=== PATIENT | male | born 1970 | race Caucasian/White ===

== ENCOUNTER → 2019-12-23 09:47 | Outpatient (BNVA) | payer OTHER, SELFPAY | PROVIDERS: Family Provider Nurse Practitioner; PCP Nurse Practitioner; Referring Provider Family Medicine; Visit Provider Orthopaedic Surgery | DX: M17.11 Unilateral primary osteoarthritis, right knee (principal); M25.561 Pain in right knee | CPT/HCPCS: 73560; 73565 ==

== ENCOUNTER 2019-12-29 14:55 | Outpatient (CLI) | payer OTHER, SELFPAY ==
--- NOTE | 2019-12-29 15:02 | MR_ITS ---
WS: [id number] MRI RIGHT KNEE NONCONTRAST TECHNIQUE: Axial PD, coronal PD fat sat, coronal PD, sagittal PD, and sagittal PD fat-sat images obta ined. CLINICAL INFORMATION: M17.11 Unilateral primary osteoarthritis, right knee COMPARISON: MRI 7 FINDINGS: Distal quadriceps and patella tendons are intact. Hypertrophic patella. Normal ACL and PCL. Normal taryn ne marrow signal in the distal femoral condyles and tibial plateau. Mild chondromalacia patella invol ving the lateral patella facet. No subchondral edema. Normal lateral collateral ligament. Normal medi al collateral ligament. Small popliteal cyst. Popliteal cyst measures approximately 14 x 9 mm. Intrasubstance signal abnormal ity involving the posterior horn medial meniscus unchanged since 2013. Normal lateral meniscus. Mild chondromalacia involving the medial and lateral joint compartments worse involving the medial joint c ompartment. MR/MR knee RT wo con* [id number] IMPRESSION: 1. Normal ACL and PCL. 2. Mild chondromalacia patella worse in the lateral patella facet. No subchond ral edema. This is progressed since 2013 3. Intrasubstance signal abnormality involving the posterior horn medial menis cus is unchanged from previous.. 4. Small popliteal cyst measuring 14 x 9 mm.
== END 2019-12-29 14:56 | disposition home or self-care (01) ==
LOC: RADWPI 14:59
PROVIDERS: Family Provider Nurse Practitioner; PCP Nurse Practitioner; Visit Provider Orthopaedic Surgery
DX: M17.11 Unilateral primary osteoarthritis, right knee (principal); M22.41 Chondromalacia patellae, right knee; M71.21 Synovial cyst of popliteal space [Baker], right knee
CPT/HCPCS: 73721

== ENCOUNTER → 2020-03-23 08:59 | Outpatient (BNVA) | payer OTHER, SELFPAY | PROVIDERS: Family Provider Nurse Practitioner; PCP Nurse Practitioner; Visit Provider Nurse Practitioner | DX: Z20.828 Contact with and (suspected) exposure to other viral communicable diseases (principal); R05 Cough; R50.9 Fever, unspecified; R69 Illness, unspecified; J98.01 Acute bronchospasm | CPT/HCPCS: 80053; 81000; 85025; 87400; 87635 ==

== ENCOUNTER 2020-03-26 12:25 | Emergency (ER) | payer OTHER, SELFPAY ==
[2020-03-26] VITALS (7 sets, daily range): BP systolic 89–199; BP diastolic 56–89; PULSE 60–106; RESP 17–25; TEMP 38.8; O2SAT 76–100; BMI 35.6
--- NOTE | 2020-03-26 13:03 | XRR_ITS ---
PROCEDURE INFORMATION: Exam: XR Chest, 1 View Exam date and time: 03/26/2020 1:05 PM Age: 50 years old Clinical indication: Shortness of breath; Additional info: Covid, hypoxia TECHNIQUE: Imaging protocol: XR of the chest Views: 1 view. COMPARISON: CR Chest 2 views* [id number] 05/11/2017 2:55 PM FINDINGS: Lungs: Interstitial congestion right perihilar region. Pleural space: Unremarkable. No pleural effusion. No pneumothorax. Heart/Mediastinum: Unremarkable. No cardiomegaly. Bones/joints: Unremarkable. XR/XR chest 1V portable [id number] IMPRESSION: 1. Mild interstitial congestion right perihilar region 2. Otherwise No acute findings.
[2020-03-26 13:17] LABS: Basophils % 0.2 %; Hematocrit 44.1 % (42.0-52.0); Hemoglobin 14.8 g/dL (11.7-16.6); Lymphocytes # 0.8 10^3/uL (0.8-4.8); Lymphocytes % 16.8 %; Mean Corpuscular HGB Conc 33.6 g/dL (30.0-36.0); Mean Corpuscular Hemoglobin 28.8 pg (28.0-34.0); Mean Platelet Volume 10.3 fL (7.4-10.4); Monocytes # 0.3 10^3/uL (0.2-0.9); Monocytes % 5.3 %; Neutrophils # 3.64 10^3/uL (1.8-7.7); Neutrophils % 76.6 %; Nucleated Red Blood Cells % 0 %; Platelet Count 215 10^3/cmm (130-400); Red Blood Count 5.13 10^6/uL (4.1-5.3); Red Cell Distribution Width 13.6 % (12.1-15.1); White Blood Count 4.8 10^3/uL (4.0-10.0)
[2020-03-26 13:22] LABS: ABG PH Result 7.43 (7.35-7.45); Arterial Blood Gas Hematocrit 45.4 % (42-52); Base Excess ABG 2.4 mmol/L (-2.0-2.0); Blood Gas Allen Test Pos; Blood Gas Sample Type Arterial; PO2 ABG 55.2 mmHg (80.0-100.0)
[2020-03-26 13:24] LABS: D Dimer 0.73 ug/mIFEU (0-0.59)
[2020-03-26 13:24] LABS: Blood Gas Sample Site Radial, left; Oxygen Device NRB
--- NOTE | 2020-03-26 13:30 | PC.NURSE ---
PTS O2 SATS NOTED AT 74-76%. O2 APPLIED AT 6L/NC, SATS INCREASED 90%.
--- NOTE | 2020-03-26 13:33 | W.ED.COVID ---
HPI - COVID General: Chief Complaint: COVID symptoms Stated Complaint: COVID+, LOW 02 STATS, FEVER Time Seen by Provider: 03/26/20 12:41 Source: patient Mode of arrival: ambulatory Limitations: no limitations Triage information: Has fever, cough or shortness of breath. Exposure to COVID + person last 14 days History of Present Illness: HPI Narrative: Patient has been feeling unwell for about a week now. He symptoms include cough, body aches, fevers, diarrhea, weakness. He does not think he has any trouble breathing. He however has been getting worse and with the severe diarrhea he decided to come to the emergency department for evaluation. MD complaint: known COVID positive Prior covid testing: yes, results known COVID 19 common symptoms: positive fever(s), chills, cough, non-productive cough, fatigue, body aches, headache(s), loss of sense of smell and/or taste, nasal congestion, nausea and diarrhea; negative productive cough, dyspnea, throat pain or vomiting COVID 19 other sytmptoms: positive requiring oxygen and lethargy; negative chest pressure, chest pain, pleuritic pain, respiratory distress, cyanosis, confusion, new neurological complaints or other concerning symptoms Onset (ago): week(s) (1) Severity: severe Pertinent comorbid conditions: diabetes and hypertension COVID Results: SARS-CoV-2 RNA (RT-PCR) Detected (NOT DETECTED) A 03/23/20 08:59 03/23/20 Review of Systems General: Reports: 10 or more systems reviewed and unremarkable except in HPI and below Const: Reports: fever(s), chills, body aches and fatigue Eyes: Denies: change in vision or blurry vision ENMT: Reports: nasal congestion; Denies: throat pain Card: Denies: chest pain Resp: Reports: non-productive cough; Denies: dyspnea or productive cough GI: Reports: nausea and diarrhea; Denies: vomiting : Denies: flank pain, dysuria, urinary frequency, urinary urgency or urinary hesitancy Musc: Denies: neck pain, back pain or extremity swelling Skin/Breast: Denies: rash, pruritus or erythema Neuro: Reports: headache(s); Denies: confusion Endo: Denies: polyuria, polydipsia or tired all the time [facility] ED PFSH: Medical History (Updated 03/26/20 @ 21:28 by Corina Lujan MD, [facility] [place] Essential (primary) hypertension Hyperlipidemia Spondylolysis, lumbosacral region Vitamin D deficiency Surgical History History of carpal tunnel release (~2013) RIGHT History of cholecystectomy (~2009) S/P left knee arthroscopy Family History Other Anesthesia complication Cancer Dementia Diabetes Hyperlipidemia Hypertension Social History Smoking and tobacco status: never smoked Lives independently: Yes Household members: none Housing: House Marital status: Single Highest education level completed: High School Graduate service: Yes Current occupational status: unemployed Current occupation: Health Safety Instructor Current occupational exposures/hazards: No History of recent travel: No Current gender identity: Male Physical Exam Const: COMMON NORMALS: no acute distress, average body habitus, patient oriented x3, no limitations, healthy appearing, alert and well nourished HENMT: COMMON NORMALS: normocephalic, atraumatic and moist oral mucous membranes HEAD & SCALP: normocephalic and atraumatic Neck/C-Spine: COMMON NORMALS: no meningeal signs and no JVD Resp: COMMON NORMALS: normal respiratory effort, No retractions, No use of accessory muscles, clear to auscultation bilaterally and percussion normal AUSCULTATION: clear to auscultation bilaterally PERCUSSION: percussion normal Cardio: COMMON NORMALS: no JVD, regular rate, regular rhythm, S1 normal heart sound present, S2 normal heart sound present, No gallops present (Cardio), No clicks present (Cardio), No murmurs present (Cardio), No rub (Cardio) and Peripheral pulses 2+ throughout RATE: regular rate RHYTHM: regular rhythm HEART SOUNDS: S1 normal heart sound present and S2 normal heart sound present PERIPHERAL PULSES: Peripheral pulses 2+ throughout GI: COMMON NORMALS: Normal to inspection, nondistended, normoactive bowel sounds present, Soft to palpation, non-tender, No hepatosplenomegaly present, no masses and no bruits PALPATION: Yes Soft to palpation and Yes No hepatosplenomegaly present Extremity: COMMON NORMALS: normal to inspection, full ROM, capillary refill normal, no calf tenderness and no pedal edema Neuro: COMMON NORMALS: patient oriented x3 SENSORIUM/ORIENTATION: Yes alert MENINGEAL SIGNS: Yes no meningeal signs Skin: COMMON NORMALS: no rashes or lesions noted, no wounds, turgor normal, no jaundice, no petechiae and no mottling GENERAL SKIN EXAM: no rashes or lesions noted and turgor normal Course ED course: 50-year-old male recently diagnosed with COVID-19 infection. In the emergency department he was found to be severely hypoxic and needed to be placed on heated high flow oxygen at 30 L/min with an FiO2 of 70%. Because of his oxygen needs he needs to be hospitalized, however we have no beds in this facility so he is transferred to [facility] for further evaluation and management. In the emergency department he received a dose of intravenous remdesivir as well as intravenous dexamethasone. Consultations: Consultation #1: Discussed the patient with Dr. Carmona, hospitalist at [facility] in [place]. He kindly accepted the patient to his service Time: 16:43 Vital Signs: Vital signs: Vital Signs Temperature 102 F H 03/26/20 12:42 Pulse Rate 101 H 03/26/20 18:49 Respiratory Rate 25 H 03/26/20 18:49 Blood Pressure 89/56 03/26/20 18:49 Pulse Oximetry 100 03/26/20 18:49 MDM - COVID MDM Narrative: Medical decision making narrative: 50-year-old male with acute respiratory failure secondary to COVID-19 pneumonia. I required to be placed on heated high flow oxygen at 30 L/min and FiO2 of 70% to maintain his oxygen saturations. He however remained stable otherwise in the emergency department. He was given a dose of intravenous dexamethasone and a first dose of remdesivir. Because we did not have any beds in this facility he was transferred to [facility] in [place]. He does not meet the criteria for Bamlanivimab infusion. Medical Records: Attestation: I reviewed the patient's medical records. Lab Data: Attestation: I reviewed the patient's lab results. Labs: Lab Results 03/26/20 03/26/20 03/26/20 Range/Units 12:55 12:55 12:55 WBC 4.8 (4.0-10.0) 10^3/ uL RBC 5.13 (4.1-5.3) 10^6/u L Hgb 14.8 (11.7-16.6) g/dL Hct 44.1 (42.0-52.0) % MCV 86.0 (80-94) fL MCH 28.8 (28.0-34.0) pg MCHC 33.6 (30.0-36.0) g/dL RDW 13.6 (12.1-15.1) % Plt Count 215 (130-400) 10^3/c mm MPV 10.3 (7.4-10.4) fL Neut % (Auto) 76.6 % Lymph % (Auto) 16.8 % [place] % (Auto) 5.3 % Eos % (Auto) 0.0 % Baso % (Auto) 0.2 % Neut # (Auto) 3.64 (1.8-7.7) 10^3/u L Lymph # (Auto) 0.8 (0.8-4.8) 10^3/u L [place] # (Auto) 0.3 (0.2-0.9) 10^3/u L Eos # (Auto) 0.0 (0.0-0.8) 10^3/u L Baso # (Auto) 0.0 (0.0-0.1) 10^3/u L Nucleated RBC % (a uto) 0 % Nucleated RBCs # 0.0 /100WBC D-Dimer 0.73 H (0-0.59) ug/mIFE U Specimen Type Sample Site ABG pH (7.35-7.45) ABG pCO2 (35-45) mmHg ABG pO2 (80.0-100.0) mmH g ABG HCO3 (22-26) mmol/L ABG Base Excess (-2.0-2.0) mmol/ L Sebas Test Hematocrit (42-52) % O2 Delivery Device FiO2 % Box Toe Stitcher ID Sodium 129 L (136-145) mmol/L Potassium 3.4 L (3.5-5.1) mmol/L Chloride 89 L (98-107) mmol/L Carbon Dioxide 24 (22-29) mmol/L Anion Gap 19.4 H (5-19) BUN 12 (6-20) mg/dL Creatinine 1.2 (0.7-1.2) mg/dL GFR Calculation 64.4 L (90-130) mL/min Glucose 351 H (65-115) mg/dL Calculated Osmolal ity 282 L (285-295) mOsm/k g Lactic Acid (0.5-2.2) mmol/L Calcium 8.7 (8.5-10.5) mg/dL Ferritin 2311 H (30-400) ng/mL Total Bilirubin 0.4 (0.15-1.2) mg/dL AST 44 H (0-40) U/L ALT 40 (0-41) U/L Alkaline Phosphata se 97 (40-130) IU/L Lactate Dehydrogen ase 473 H (135-225) U/L C-Reactive Protein 89.2 H (0.0-4.9) mg/L Total Protein 7.2 (6.6-8.7) g/dL Albumin 4.0 (3.5-5.2) g/dL Globulin 3.2 (1.3-4.6) g/dL Procalcitonin 0.37 (0-0.5) ng/mL Influenza Type A A g (Negative) Influenza Type B A g (Negative) 03/26/20 03/26/20 03/26/20 Range/Units 12:55 13:15 13:50 WBC (4.0-10.0) 10^3/ uL RBC (4.1-5.3) 10^6/u L Hgb (11.7-16.6) g/dL Hct (42.0-52.0) % MCV (80-94) fL MCH (28.0-34.0) pg MCHC (30.0-36.0) g/dL RDW (12.1-15.1) % Plt Count (130-400) 10^3/c mm MPV (7.4-10.4) fL Neut % (Auto) % Lymph % (Auto) % [place] % (Auto) % Eos % (Auto) % Baso % (Auto) % Neut # (Auto) (1.8-7.7) 10^3/u L Lymph # (Auto) (0.8-4.8) 10^3/u L [place] # (Auto) (0.2-0.9) 10^3/u L Eos # (Auto) (0.0-0.8) 10^3/u L Baso # (Auto) (0.0-0.1) 10^3/u L Nucleated RBC % (a uto) % Nucleated RBCs # /100WBC D-Dimer (0-0.59) ug/mIFE U Specimen Type Arterial Sample Site Radial, left ABG pH 7.43 (7.35-7.45) ABG pCO2 41.0 (35-45) mmHg ABG pO2 55.2 L (80.0-100.0) mmH g ABG HCO3 27.0 H (22-26) mmol/L ABG Base Excess 2.4 H (-2.0-2.0) mmol/ L Sebas Test Pos Hematocrit 45.4 (42-52) % O2 Delivery Device Nrb FiO2 100.0 % Box Toe Stitcher ID Drn Sodium (136-145) mmol/L Potassium (3.5-5.1) mmol/L Chloride (98-107) mmol/L Carbon Dioxide (22-29) mmol/L Anion Gap (5-19) BUN (6-20) mg/dL Creatinine (0.7-1.2) mg/dL GFR Calculation (90-130) mL/min Glucose (65-115) mg/dL Calculated Osmolal ity (285-295) mOsm/k g Lactic Acid 2.0 (0.5-2.2) mmol/L Calcium (8.5-10.5) mg/dL Ferritin (30-400) ng/mL Total Bilirubin (0.15-1.2) mg/dL AST (0-40) U/L ALT (0-41) U/L Alkaline Phosphata se (40-130) IU/L Lactate Dehydrogen ase (135-225) U/L C-Reactive Protein (0.0-4.9) mg/L Total Protein (6.6-8.7) g/dL Albumin (3.5-5.2) g/dL Globulin (1.3-4.6) g/dL Procalcitonin (0-0.5) ng/mL Influenza Type A A g Negative (Negative) Influenza Type B A g Negative (Negative) Imaging Data: CXR: Attestation: I personally reviewed and interpreted this imaging study as follows: Radiologist's impression: [address] [place] [address] XRay Report Signed Patient: Ugo Pierre #: [id number] : 1970Acct#:[id number] Age/Sex: 50 / MADM Date: 03/26/20 Loc: ERRoom/Bed: Attending Dr: Ordering Provider/Ordering MD: Corina Lujan MD, [facility] [place] Date of Service: 03/26/20 Procedure(s): XR chest 1V portable [id number] Accession Number(s): [id number] Report Number: [id number] PROCEDURE INFORMATION: Exam: XR Chest, 1 View Exam date and time: 03/26/2020 1:05 PM Age: 50 years old Clinical indication: Shortness of breath; Additional info: Covid, hypoxia TECHNIQUE: Imaging protocol: XR of the chest Views: 1 view. COMPARISON: CR Chest 2 views* [id number] 05/11/2017 2:55 PM FINDINGS: Lungs: Interstitial congestion right perihilar region. Pleural space: Unremarkable. No pleural effusion. No pneumothorax. Heart/Mediastinum: Unremarkable. No cardiomegaly. Bones/joints: Unremarkable. XR/XR chest 1V portable [id number] IMPRESSION: 1. Mild interstitial congestion right perihilar region 2. Otherwise No acute findings. Dictated By:Jah Archibald Signed By:Leander Archibald Date/Time:03/26/201414 DD/ 1413 COVID Results: SARS-CoV-2 RNA (RT-PCR) Detected (NOT DETECTED) A 03/23/20 08:59 03/23/20 Discharge Plan Discharge Patient Disposition: Xfer Short-Term Hosp Clinical Impression: Acute hypoxemic respiratory failure, Pneumonia due to 2019 novel coronavirus, Gastroenteritis due to 2019 novel coronavirus Discharge Orders: Transfer Out of Facility (Order); Ordered 03/26/20 Ordered By: Corina Lujan Referrals: Enrrique Bonds, DRILLING PLANT OPERATOR-C [Primary Care Provider] - Coding Level of Care Code ED Rustic Terrazzo Setter for Chg Fwd Exam Comprehensive
[2020-03-26 13:38] LABS: Procalcitonin 0.37 ng/mL (0-0.5)
[2020-03-26 13:50] LABS: Alanine Aminotransferase 40 U/L (0-41); Alkaline Phosphatase 97 IU/L (40-130); Anion Gap 19.4 (5-19); Aspartate Amino Transferase 44 U/L (0-40); Blood Urea Nitrogen 12 mg/dL (6-20); C Reactive Protein 89.2 mg/L (0.0-4.9); Calcium 8.7 mg/dL (8.5-10.5); Carbon Dioxide 24 mmol/L (22-29); Chloride 89 mmol/L (98-107); Globulin 3.2 g/dL (1.3-4.6); Glomerular Filtration Rate 64.4 mL/min (90-130); Glucose 351 mg/dL (65-115); Osmolality Calculated 282 mOsm/kg (285-295); Potassium 3.4 mmol/L (3.5-5.1); Sodium 129 mmol/L (136-145); Total Bilirubin 0.4 mg/dL (0.15-1.2); Total Protein 7.2 g/dL (6.6-8.7)
[2020-03-26 14:13] LABS: Ferritin 2311 ng/mL (30-400)
[2020-03-26 14:14] LABS: Lactate Dehydrogenase 473 U/L (135-225)
[2020-03-26] MEDS: ondansetron 2 mg/ML SDV 2 mL 4 MG IVP (14:17)
[2020-03-26] MEDS: morphine 4 mg/mL SDV 1 mL IVP (14:18)
[2020-03-26 15:01] LABS: Influenza A by IFA Negative (Negative); Influenza B by IFA Negative (Negative)
[2020-03-26] MEDS: dexamethasone 4 mg/mL INJ 6 MG IVP (17:39)
== END 2020-03-26 18:53 | disposition short-term general hospital (02) ==
PROVIDERS: Emergency Provider Family Medicine; PCP Nurse Practitioner
DX: U07.1 COVID-19 (principal); J12.89 Other viral pneumonia; J96.01 Acute respiratory failure with hypoxia; A08.39 Other viral enteritis; I10 Essential (primary) hypertension; E78.5 Hyperlipidemia, unspecified
CPT/HCPCS: 12345; 36600; 71045; 80053; 82728; 82803; 83605; 83615; 84145; 85025; 85378; 86140; 87804; 96365; 96375; 99282; 99285; J1100; J2270; J2405

== ENCOUNTER 2020-09-13 06:00 | Outpatient (RCR) | payer OTHER, SELFPAY | END 2020-09-26 23:59 | disposition home or self-care (01) | LOC: TPO 06:00 | PROVIDERS: PCP Nurse Practitioner; Referring Provider Family Medicine; Visit Provider Family Medicine | DX: I60.11 Nontraumatic subarachnoid hemorrhage from right middle cerebral artery (principal) | CPT/HCPCS: 97110; 97162; 97166 ==

== ENCOUNTER 2020-09-27 06:00 | Outpatient (RCR) | payer OTHER, SELFPAY | END 2020-10-26 23:59 | disposition home or self-care (01) | LOC: TPO 06:00 | PROVIDERS: PCP Nurse Practitioner; Referring Provider Family Medicine; Visit Provider Family Medicine | DX: I60.11 Nontraumatic subarachnoid hemorrhage from right middle cerebral artery (principal) | CPT/HCPCS: 97110; 97140; 97164; 97530 ==

== ENCOUNTER 2020-10-12 13:00 | Emergency (ER) | payer OTHER, SELFPAY ==
[2020-10-12 13:07] VITALS: BP 167/94; PULSE 84; RESP 16; TEMP 36.6; O2SAT 93; BMI 31.6
--- NOTE | 2020-10-12 15:11 | ED_ITS ---
HPI - URI/Sore Throat General: Chief Complaint: Shortness of Breath/Dyspnea Stated Complaint: SOB Time Seen by Provider: 10/12/20 15:01 History of Present Illness: HPI Narrative: Patient is a 50-year-old male who comes to the ED with upper respiratory symptoms. Patient has had a cough with nasal drainage and congestion for the past week. He says his cough is productive with thick green-colored sputum. Patient has a history of of severe COVID-19 on 2019 and required hospitalization. [facility]-ray and to be swabbed for Covid again. Patient also feels a little short of breath, but that is normal for him now since he was discharged after hospitalization from COVID-19 in Feb 2020. Denies any fever, chills, nausea/vomiting, bladder or bowel symptoms. Associated symptoms: Deny abdominal pain, chills, chest pain, diarrhea, fever(s), headache(s), nasal congestion, nausea or vomiting Review of Systems Const: Denies: fever(s), chills or fatigue Eyes: Denies: change in vision or eye discomfort ENMT: Denies: throat pain, odynophagia, nasal discharge or nasal congestion Card: Denies: chest pain, palpitations, edema, swelling of feet/ankles, dyspnea on exertion or orthopnea Resp: Reports: dyspnea (chronic), productive cough and change in phlegm color (greenish color); Denies: non-productive cough GI: Denies: abdominal pain, nausea, vomiting, diarrhea, constipation or hematochezia : Denies: flank pain, difficulty urinating, dysuria or hematuria Musc: Denies: neck pain, back pain or extremity swelling Skin/Breast: Denies: rash or new lesions Neuro: Denies: headache(s), numbness in extremities or weakness in extremities PFS ED PFSH: Medical History Essential (primary) hypertension Hyperlipidemia Spondylolysis, lumbosacral region Type 2 diabetes mellitus with hyperglycemia Vitamin D deficiency Surgical History History of carpal tunnel release (~2013) RIGHT History of cholecystectomy (~2009) S/P left knee arthroscopy Family History Mother Dementia Hypertension Hyperlipidemia Sister Hypertension Other Anesthesia complication Cancer Diabetes Social History Smoking and tobacco status: never smoked Lives independently: Yes Household members: none Housing: House Marital status: Single Highest education level completed: High School Graduate service: Yes Current occupational status: unemployed Current occupation: Store Protection Specialist Current occupational exposures/hazards: No History of recent travel: No Current gender identity: Male Physical Exam Const: COMMON NORMALS: no acute distress, patient oriented x3 and alert GENERAL APPEARANCE: cooperative and comfortable HENMT: COMMON NORMALS: normocephalic HEAD & SCALP: normocephalic MOUTH: Normal oral and palatal mucosa present THROAT: posterior oropharynx normal and uvula midline Neck/C-Spine: COMMON NORMALS: supple GENERAL: Yes normal visual inspection Resp: COMMON NORMALS: normal respiratory effort, No retractions, No use of accessory muscles and clear to auscultation bilaterally EFFORT & INSPECTION: Yes able to speak in complete sentences, No tachypneic, No respiratory distress and No labored AUSCULTATION: clear to auscultation bilaterally Cardio: COMMON NORMALS: regular rate, regular rhythm, S1 normal heart sound present, S2 normal heart sound present, No gallops present (Cardio), No clicks present (Cardio), No murmurs present (Cardio) and Peripheral pulses 2+ throug hout RATE: regular rate RHYTHM: regular rhythm HEART SOUNDS: S1 normal heart sound present and S2 normal heart sound present PERIPHERAL PULSES: Peripheral pulses 2+ throughout GI: COMMON NORMALS: Normal to inspection, nondistended, normoactive bowel sounds present, Soft to palpation, non-tender and no masses PALPATION: Yes Soft to palpation : COMMON NORMALS: Yes no CVA tenderness BLADDER/KIDNEY EXAM: Yes no CVA tenderness Back/Pelvis: COMMON NORMALS: no CVA tenderness Extremity: COMMON NORMALS: normal to inspection Neuro: COMMON NORMALS: patient oriented x3 and moves all extremities SENSORIUM/ORIENTATION: Yes alert Skin: GENERAL SKIN EXAM: dry skin Course Vital Signs: Vital signs: Vital Signs Temperature 97.9 F 10/12/20 13:07 Pulse Rate 77 10/12/20 16:32 Respiratory Rate 20 H 10/12/20 16:32 Blood Pressure 151/74 10/12/20 16:32 Pulse Oximetry 94 10/12/20 16:32 MDM - URI/Sore Throat MDM Narrative: Medical decision making narrative: Patient is a 50-year-old male comes to the ED with upper respiratory symptoms for the past week. He reports coughing up green sputum. Chronic exam patient appears nontoxic and in no acute distress or pain. His lungs were clear to auscultation bilaterally no signs of labored breathing noted. Vital stable. Covid test pending. Chest x- ray showed right lung middle lobe pneumonia developing. Patient diagnosed with pneumonia. Patient was given dose of Solu-Medrol here in the ED and discharged home with azithromycin prescription. Return to ED precautions given. Follow-up with PCP 5 to 7 days for reevaluation. Patient understood agree with plan. Lab Data: Labs: Lab Results 10/12/20 Range/Units 15:50 Nasal/Oral COVID-1 9 PCR Not detected Imaging Data^: CXR: Attestation: I personally reviewed and interpreted this imaging study as follows: Radiologist's impression: [id number] [address] XRay Report Signed Patient: Ugo Pierre Unit #: [id number] : 1970 Age/Sex: 50 / M ADM Date: 10/12/20 Loc: ER Room/Bed: Attending Dr: Ordering Provider/Ordering MD: Ron Balderas Date of Service: 10/12/20 Procedure(s): XR chest 2V* [id number] Accession Number(s): [id number] Report Number: [id number] WS: [id number] Exam: XR chest 2V* [id number] Date/Time of Exam: 10/12/2020 3:36 PM Reason For Exam: productive cough and SOB Comparison 06/29/2014. Mild diffuse infiltrate in the medial right lung zone. The left lung is clear. Heart size is normal for technique. No pleural effusions or pneumothorax. There appear to be several emphysematous blebs in the right upper lobe. Regional bony elements are intact. The superior mediastinum is not widened. XR/XR chest 2V* [id number] IMPRESSION: 1. Mild diffuse infiltrate in the medial right lung zone suspicious for pneumonia. There are also several emphysematous blebs noted in the medial right lung within the upper lobe. Dictated By: Marky Reyes DO Signed By: Marky Reyes DO Signed Date/Time: 10/12/20 1554 DD/ 1546 Discharge Plan Discharge Patient Disposition: Home Clinical Impression: Pneumonia Qualifiers: Pneumonia type: due to unspecified organism Laterality: right Lung location: middle lobe of lung Qualified Code(s): J18.9 - Pneumonia, unspecified organism Condition: Stable Prescriptions: New azithromycin 250 mg tablet See Rx Instructions .ROUTE .COMPLEX Qty: 6 RF: 0 No Action amlodipine 10 mg tablet 10 mg PO DAILY RF: 0 atorvastatin 20 mg tablet 20 mg PO DAILY RF: 0 chlorthalidone 25 mg tablet 25 mg PO DAILY RF: 0 Excedrin Tension Headache 500-65 mg tablet 3 tab PO DAILY PRN (Reason: Migraine Headache) RF: 0 omega-3 fatty acids [Fish Oil Concentrate] 1,000 mg capsule 1,000 mg PO DAILY RF: 0 Jardiance 25 mg tablet 25 mg PO QAM RF: 0 valsartan 80 mg tablet 80 mg PO DAILY RF: 0 vitamin B complex [B Complex-Vitamin B12] Tablet 1 tab PO DAILY RF: 0 cholecalciferol (vitamin D3) 25 mcg (1,000 unit) capsule 25 mcg PO DAILY RF: 0 vitamin E 1,000 unit Capsule 1,000 unit PO DAILY RF: 0 metoprolol succinate 200 mg Tablet Extended Release 24 Hr 200 mg PO BID RF: 0 famotidine 20 mg Tablet 20 mg PO DAILY RF: 0 Vitamin C 500 mg Tablet 500 mg PO DAILY RF: 0 glipizide 5 mg Tablet 2.5 mg PO BID RF: 0 Discharge Orders: Discharge ED (Routine); Ordered 10/12/20 Ordered By: Ron Balderas Referrals: Enrrique Bonds, IT SUPPORT TECHNICIAN-C [Primary Care Provider] - Discharge Diet: Regular Discharge Activity: Increase activity as tolerated Patient Instructions: Pneumonia (ED) Activity Restrictions/Additional Instructions: Follow-up with medical provider as directed in 5 days for reevaluation. Take full course of antibiotic as prescribed. Return to the ER or your medical provider if condition worsens. Please read and understand discharge instructions. Thank you for choosing [facility] for your healthcare needs today. Please realize this is an emergency room and that we are providing you with a medical screening exam and this may not be complete and all inclusive of all the testing and or work up that you may need to determine your ailment or severity of your illness. It is very important that you follow up as instructed or that you return to the Emergency Department should you have concerns or if your condition changes or worsens in any way. Coding Level of Care Code ED Machine Bobbin Winder for Elizabeth Fwd Exam Comprehensive
--- NOTE | 2020-10-12 15:17 | XR_ITS ---
WS: [id number] Exam: XR chest 2V* [id number] Date/Time of Exam: 10/12/2020 3:36 PM Reason For Exam: productive cough and SOB Comparison 06/29/2014. Mild diffuse infiltrate in the medial right lung zone. The left lung is clear. Heart size is normal f or technique. No pleural effusions or pneumothorax. There appear to be several emphysematous blebs in the right upper lobe. Regional bony elements are intact. The superior mediastinum is not widened. XR/XR chest 2V* [id number] IMPRESSION: 1. Mild diffuse infiltrate in the medial right lung zone suspicious for pneumon ia. There are also several emphysematous blebs noted in the medial right lung w ithin the upper lobe.
--- NOTE | 2020-10-12 15:39 | ECG_ITS ---
[facility] Test Date: 2020-10-12 Pat Name: Ugo Pierre Department: Room: Gender: Male Satellite Communications Operator: : 1970 Requested By: Ron Balderas Order Number: [id number] Glover MD: Deysi Negro M.D. Measurements Intervals [place] Rate: 85 P: 14 [place]: 174 QRS: -15 QRSD: 96 T: 53 QT: 384 QTc: 458 Interpretive Statements SINUS RHYTHM POSSIBLE LEFT ATRIAL ENLARGEMENT [-0.1mV P WAVE IN V1/V2] NONSPECIFIC T-WAVE ABNORMALITY WARNING: DATA QUALITY MAY AFFECT INTERPRETATION No previous ECG available for comparison Electronically Signed On 10-12-2020 17:46:50 CDT by Deysi Negro M.D. [id number]
[2020-10-12 16:12] VITALS: BP 151/74; PULSE 77; RESP 20; O2SAT 94
[2020-10-12 16:32] VITALS: BP 151/74; PULSE 77; RESP 20; O2SAT 94
[2020-10-13 15:49] LABS: Coronavirus Test Green County Not Detected
--- NOTE | 2020-10-13 16:29 | PC.NURSE ---
pt contacted and given the results of his covid test
== END 2020-10-12 16:33 | disposition home or self-care (01) ==
PROVIDERS: Emergency Provider Physician Assistant; PCP Nurse Practitioner
DX: J18.9 Pneumonia, unspecified organism (principal); I10 Essential (primary) hypertension; E78.5 Hyperlipidemia, unspecified; E11.9 Type 2 diabetes mellitus without complications; Z20.822 Contact with and (suspected) exposure to COVID-19
CPT/HCPCS: 71046; 87635; 93005; 96372; 99283; J2930

== ENCOUNTER → 2020-10-25 10:58 | Outpatient (BNVA) | payer OTHER, SELFPAY | PROVIDERS: PCP Family Medicine; Visit Provider Internal Medicine Pulmonary Disease | DX: J30.89 Other allergic rhinitis (principal); T78.40XA Allergy, unspecified, initial encounter | CPT/HCPCS: 82785; 85025; 86003 ==

== ENCOUNTER 2020-10-27 06:00 | Outpatient (RCR) | payer OTHER, SELFPAY | END 2020-11-26 23:59 | disposition home or self-care (01) | LOC: TPO 06:00 | PROVIDERS: PCP Family Medicine; Referring Provider Family Medicine; Visit Provider Family Medicine | DX: I60.11 Nontraumatic subarachnoid hemorrhage from right middle cerebral artery (principal) | CPT/HCPCS: 97110; 97112; 97164; 97530 ==

== ENCOUNTER → 2020-11-10 10:22 | Outpatient (BNVA) | payer OTHER, SELFPAY | PROVIDERS: PCP Family Medicine; Visit Provider Internal Medicine Pulmonary Disease | DX: B94.8 Sequelae of other specified infectious and parasitic diseases (principal); J12.89 Other viral pneumonia; R53.81 Other malaise; U07.1 COVID-19; Z20.822 Contact with and (suspected) exposure to COVID-19 | CPT/HCPCS: 87635 ==

== ENCOUNTER 2020-11-14 07:50 | Outpatient (CLI) | payer OTHER, SELFPAY ==
--- NOTE | 2020-11-14 10:00 | CT_ITS ---
WS: [id number] CT CHEST WITHOUT INTRAVENOUS CONTRAST HISTORY: dyspnea TECHNIQUE: Contiguous 5 mm axial imaging performed on the thorax. Coronal and sagittal reformats are submitted. All CT scans at [facility] use at least one of these dose optimization techniq ues: automated exposure control; mA and/or kV adjustment per patient size (includes targeted exams wh ere dose is matched to clinical indication); or iterative reconstruction. CONTRAST: None DLP: 1013.3 mGy.cm COMPARISON: Radiographs 10/12/2020 Lungs and central airway: Multilobar findings a mild groundglass attenuation with fibrosis and scarri ng. Areas of linear subsegmental atelectasis in all lobes. No dense area of consolidation. Thin wall cystic cavity in the RIGHT upper lobe. 4 mm nodule at the lingula there are additional granuloma. Pleura: Normal. No pleural effusion. Heart and pericardium: Moderately enlarged. No calcifications in the coronary artery. No effusion. Mediastinum and lesly: There are numerous but small, subcentimeter mediastinal and hilar lymph nodes w hich may be reactive. Vessels: Normal size aortic and pulmonary artery. No coronary artery calcifications. Chest wall and lower neck: No soft tissue masses. Upper abdomen: Prior cholecystectomy. 3 mm nodule in the LEFT lobe of liver is low attenuation and to o small to characterize. No bile duct dilatation. No adrenal mass. Osseous structures: Mild spondylitic changes in the thoracic spine. CT/CT chest wo con [id number] IMPRESSION: 1. Mixture of mild diffuse groundglass attenuation and multi lobar areas of at electasis and mild fibrotic changes throughout both lungs. Cavitation in the RI GHT upper lobe is probably benign cyst. As the lee of this cystic cavity are evident recommend follow-up chest CT in 3 months to exclude cystic neoplasm. Th ere is an additional 4 mm nodule in the lingula. 2. Moderate cardiomegaly. 3. No adenopathy. 4. Prior cholecystectomy.
--- NOTE | 2020-11-14 13:11 | PFTS_ITS ---
Date of Study:11/14/20 Date of Dictation: 11/15/20 MECHANICS: Post bronchodilator Forced vital capacity (FVC) is reduced. Post bronchodilator Forced expiratory volume in one second (FEV1) is moderately reduced 63% FEV1/FVC is normal.. There is no significant response to bronchodilators. FLOW VOLUME LOOP: Normal. LUNG VOLUMES: Total lung capacity (TLC) is moderately reduced . Residual volume (RV) is reduced. . DIFFUSING CAPACITY FOR CARBON MONOXIDE: moderately reduced 55 % . INTERPRETATION: The pulmonary function tests are consistent with moderate restrictive lung disease.Lung volumes are moderately reduced. Gas exchange (DLCO) is moderately reduced. Clinical Correlation recommended. MTDD
== END 2020-11-14 07:51 | disposition home or self-care (01) ==
PROVIDERS: PCP Family Medicine; Visit Provider Internal Medicine Pulmonary Disease
DX: R06.00 Dyspnea, unspecified (principal); Z90.49 Acquired absence of other specified parts of digestive tract; I51.7 Cardiomegaly
CPT/HCPCS: 71250; 94060; 94618; 94726; 94729; J7611

== ENCOUNTER 2020-11-27 06:00 | Outpatient (RCR) | payer OTHER, SELFPAY | END 2020-12-27 23:59 | disposition home or self-care (01) | LOC: TPO 06:00 | PROVIDERS: PCP Family Medicine; Referring Provider Family Medicine; Visit Provider Family Medicine | DX: I60.11 Nontraumatic subarachnoid hemorrhage from right middle cerebral artery (principal) | CPT/HCPCS: 97110; 97530; L3906 ==

== ENCOUNTER → 2020-12-06 11:41 | Outpatient (BNVA) | payer OTHER, SELFPAY | PROVIDERS: PCP Family Medicine; Visit Provider Internal Medicine Pulmonary Disease | DX: J98.4 Other disorders of lung (principal); M79.89 Other specified soft tissue disorders | CPT/HCPCS: 82103; 84550; 85651; 86038; 86140; 86225; 86235; 86431 ==

== ENCOUNTER 2021-02-09 06:00 | Outpatient (RCR) | payer OTHER, SELFPAY | END 2021-02-26 23:59 | disposition home or self-care (01) | LOC: PULRHB 06:00 | PROVIDERS: PCP Family Medicine; Visit Provider Family Medicine | DX: J44.9 Chronic obstructive pulmonary disease, unspecified (principal) | CPT/HCPCS: 94618; G0239; G0424 ==

== ENCOUNTER → 2021-02-20 10:48 | Outpatient (BNVA) | payer OTHER, SELFPAY | PROVIDERS: PCP Family Medicine; Visit Provider Specialist | DX: G56.23 Lesion of ulnar nerve, bilateral upper limbs (principal); F98.8 Other specified behavioral and emotional disorders with onset usually occurring in childhood and adolescence; U09.9 Post COVID-19 condition, unspecified; I69.30 Unspecified sequelae of cerebral infarction; Z79.899 Other long term (current) drug therapy | CPT/HCPCS: 99205 ==

== ENCOUNTER 2021-02-22 15:28 | Outpatient (CLI) | payer OTHER, SELFPAY ==
--- NOTE | 2021-02-22 15:45 | USCV_ITS ---
Ugo Pierre Age: 51 Gender: M : 1970 Exam Date: 02/22/2021 15:43 Ordering Phys: Lindsey Parnell MD Technologist: Tari Villa Exam Location: [facility] [place] Indication: CARDIOMYOPATHY BP: 150 / 80 HR: 74 Rhythm: Sinus Technical Quality: Adequate MEASUREMENTS (Male / Female) Normal Values 2D ECHO LV Diastolic Diameter PLAX 5.9 cm 4.2 - 5.9 / 3.9 - 5.3 cm LV Systolic Diameter PLAX 3.3 cm IVS Diastolic Thickness 1.4 cm 0.6 - 1.0 / 0.6 - 0.9 cm IVS Systolic Thickness 2.3 cm LVPW Diastolic Thickness 1.6 cm 0.6 - 1.0 / 0.6 - 0.9 cm LVPW Systolic Thickness 1.6 cm RV Chamber Size 3.3 cm LVOT Diameter 2.1 cm LV Ejection Fraction 2D Teich 75.2 % LV Ejection Fraction MOD 2C 61.4 % LV Ejection Fraction 2C AL 60.7 % LA Diameter 3.7 cm LA Width 3.1 cm LA Height 4.5 cm RA Width 2.8 cm RA Height 4.6 cm Aorta at Sinotubular Diameter 3.1 cm DOPPLER AV Peak Velocity 104.0 cm/s LVOT Peak Velocity 76.0 cm/s AV Area Cont Eq vti 2.8 cm squared AV Area Cont Eq pk 2.4 cm squared MV Area PHT 4.1 cm squared Mitral E to A Ratio 0.8 MV E' Velocity 32.0 cm/s Mitral E to MV E' Ratio 3.5 Mitral E to LV E' Lateral Ratio 3.0 Mitral E to LV E' Septal Ratio 4.3 TR Peak Velocity 331.0 cm/s TR Peak Gradient 43.8 mmHg PV Peak Velocity 104.0 cm/s RV Acceleration Time 0.1 s RV Ejection Time 0.3 s RV AcT/ET 0.4 FINDINGS Left Ventricle Normal left ventricular size and systolic function, EF 69 %. Mild left ventricular hypertrophy. Grade I/IV diastolic dysfunction (abnormal relaxation filling pattern), normal to mildly elevated filling pressures. Mild diffuse hypokinesia left ventricular ejection fraction of 50%( visual) Right Ventricle The right ventricle is normal in size and function. Right Atrium The right atrium is normal in size. Left Atrium The left atrium is normal in size. Mitral Valve Minimally thickened mitral valve Aortic Valve Thickened aortic valve. Tricuspid Valve Trace tricuspid valve regurgitation. Pulmonic Valve Trace pulmonary valve regurgitation. Pericardium Normal pericardium without effusion. Aorta Normal ascending aorta dimension. CONCLUSIONS Normal left ventricular size and systolic function, EF 69 %. Mild left ventricular hypertrophy. Grade I/IV diastolic dysfunction (abnormal relaxation filling pattern), normal to mildly elevated filling pressures. Mild diffuse hypokinesia of the left ventricule with an ejection fraction of 50%( visual). Minimally thickened aortic and mitral valves. Trace tricuspid valve regurgitation. There is no pericardial effusion. There are no intracardiac masses. Comparison with the previous study is difficult because of the difference in the technical quality. Dr Deysi Negro MD FACC (Electronically Signed) Final Date: 22 February 2021 23:49 S
== END 2021-02-22 15:29 | disposition home or self-care (01) ==
LOC: RAD 15:30
PROVIDERS: PCP Family Medicine; Visit Provider Family Medicine
DX: I42.9 Cardiomyopathy, unspecified (principal); I07.1 Rheumatic tricuspid insufficiency
CPT/HCPCS: 93306

== ENCOUNTER 2021-02-27 06:00 | Outpatient (RCR) | payer OTHER, SELFPAY | END 2021-03-28 23:59 | disposition home or self-care (01) | LOC: PULRHB 06:00 | PROVIDERS: PCP Family Medicine; Visit Provider Family Medicine | DX: G40.909 Epilepsy, unspecified, not intractable, without status epilepticus (principal); J84.10 Pulmonary fibrosis, unspecified; I63.9 Cerebral infarction, unspecified; Z86.69 Personal history of other diseases of the nervous system and sense organs | CPT/HCPCS: 95816; G0237; G0238; G0239; G0424 ==

== ENCOUNTER 2021-03-29 06:00 | Outpatient (RCR) | payer OTHER, SELFPAY | END 2021-04-28 23:59 | disposition home or self-care (01) | LOC: PULRHB 06:00 | PROVIDERS: PCP Family Medicine; Visit Provider Family Medicine | DX: J98.4 Other disorders of lung (principal); U07.1 COVID-19; J12.82 Pneumonia due to coronavirus disease 2019 | CPT/HCPCS: G0237; G0238; G0239; G0424 ==

== ENCOUNTER 2021-04-29 06:00 | Outpatient (RCR) | payer OTHER, SELFPAY | END 2021-05-29 23:59 | disposition home or self-care (01) | LOC: PULRHB 06:00 | PROVIDERS: PCP Family Medicine; Visit Provider Family Medicine | DX: G40.909 Epilepsy, unspecified, not intractable, without status epilepticus (principal); Z86.69 Personal history of other diseases of the nervous system and sense organs | CPT/HCPCS: 94626; G0237; G0238; G0239; G0424 ==

== ENCOUNTER 2021-05-30 06:00 | Outpatient (RCR) | payer OTHER, SELFPAY | END 2021-06-26 23:59 | disposition home or self-care (01) | LOC: PULRHB 06:00 | PROVIDERS: PCP Family Medicine; Visit Provider Family Medicine | DX: G40.909 Epilepsy, unspecified, not intractable, without status epilepticus (principal); Z86.69 Personal history of other diseases of the nervous system and sense organs | CPT/HCPCS: 94626; G0424 ==

== ENCOUNTER 2021-06-27 06:00 | Outpatient (RCR) | payer OTHER, SELFPAY | END 2021-07-27 23:59 | disposition home or self-care (01) | LOC: PULRHB 06:00 | PROVIDERS: PCP Family Medicine; Visit Provider Family Medicine | DX: G40.909 Epilepsy, unspecified, not intractable, without status epilepticus (principal); J84.9 Interstitial pulmonary disease, unspecified; Z86.69 Personal history of other diseases of the nervous system and sense organs | CPT/HCPCS: 94626 ==

== ENCOUNTER → 2021-06-28 00:01 | Outpatient (BNVA) | payer OTHER, SELFPAY | PROVIDERS: PCP Family Medicine; Visit Provider Internal Medicine Pulmonary Disease | DX: Z20.822 Contact with and (suspected) exposure to COVID-19 (principal) | CPT/HCPCS: 87635 ==

== ENCOUNTER → 2021-07-04 10:22 | Outpatient (BNVA) | payer OTHER, SELFPAY | PROVIDERS: PCP Family Medicine; Visit Provider Specialist | DX: G40.909 Epilepsy, unspecified, not intractable, without status epilepticus (principal); G56.23 Lesion of ulnar nerve, bilateral upper limbs; I69.30 Unspecified sequelae of cerebral infarction | CPT/HCPCS: 99213; 99214 ==

== ENCOUNTER 2021-07-05 07:51 | Outpatient (CLI) | payer OTHER, SELFPAY ==
--- NOTE | 2021-07-05 13:26 | PFTS_ITS ---
Date of Study:07/05/21 Date of Dictation:02/2022 MECHANICS: Postbronchodilator forced vital capacity (FVC) is reduced. Postbronchodilator forced expiratory volume in one second (FEV1) is moderately reduced 73 % FEV1/FVC is normal. There is no significant response to bronchodilators. FLOW VOLUME LOOP: Flattening of inspiratory limb suggestive of dynamic extrathoracic compression LUNG VOLUMES: Total lung capacity (TLC) is moderately reduced 55%. Residual volume (RV) is severely reduced. DIFFUSING CAPACITY FOR CARBON MONOXIDE: Mildly reduced 72% . INTERPRETATION: The postbronchodilator spirometry is consistent with moderate restriction.? There is no significant response to bronchodilators.? Lung volumes also suggestive of moderate restriction.? Gas transfer is mildly reduced.? Flow volume loop suggestive of flattening of inspiratory limb suggestive of dynamic extrathoracic compression. Correlate clinically. MTDD
== END 2021-07-05 07:52 | disposition home or self-care (01) ==
LOC: RAD 07:51
PROVIDERS: PCP Family Medicine; Visit Provider Internal Medicine Pulmonary Disease
DX: J98.4 Other disorders of lung (principal); U07.1 COVID-19; J12.89 Other viral pneumonia
CPT/HCPCS: 94060; 94618; 94726; 94729; J7611

== ENCOUNTER 2021-07-07 13:58 | Outpatient (CLI) | payer OTHER, SELFPAY ==
--- NOTE | 2021-07-07 14:07 | MR_ITS ---
WS: [id number] MRI HEAD WITHOUT CONTRAST TECHNIQUE: Sagittal T1, T2 axial, T2 axial FLAIR, axial and coronal T1 images, axial susceptibility w eighted imaging, axial diffusion weighted images, and coronal T2 images were obtained. CLINICAL INFORMATION: I63.9 - Cerebral infarction, unspecified COMPARISON: CT head 7 ,014 FINDINGS: No evidence restricted diffusion to suggest acute ischemia. Ventricular system and basal cisterns are patent. Mild small vessel changes with mild parenchymal volume loss. Multiple chronic infarcts with encephalomalacia and gliosis with associated hemosiderin involving the LEFT frontal lobe, LEFT pariet al lobe, LEFT occipital lobe, and LEFT cerebellum. Additional chronic infarcts involving the RIGHT po sterior frontal lobe, RIGHT parasagittal parietal lobe, and RIGHT occipital lobe with encephalomalaci a and hemosiderin. Tiny chronic appearing lacunar infarct RIGHT cerebellum. Normal vascular flow voids at the skull base . No extra-axial fluid collections. Retention cysts maxillary sinuses. Mastoid air cells are well aer ated. Normal posterior nasopharynx. Normal optic chiasm and pituitary infundibulum. Temporal lobes and hippocampal formations are normal in appearance. No hydrocephalus. MR/MR head wo con* [id number] IMPRESSION: 1. No evidence of restricted diffusion to suggest acute ischemia. 2. Multiple chronic infarcts with encephalomalacia and gliosis with associated hemosiderin described above. 3. Mild small vessel changes moderate parenchymal volume loss. 4. Tiny chronic lacunar infarct RIGHT cerebellum. 5. Mild inflammatory changes in the paranasal sinuses with RIGHT maxillary ret ention cyst measuring 14 mm. Smaller LEFT maxillary retention cyst measuring 10 .5 mm. 6. Temporal lobes and hippocampal formations are normal in appearance. 7. No other significant findings.
== END 2021-07-07 13:59 | disposition home or self-care (01) ==
PROVIDERS: PCP Family Medicine; Visit Provider Specialist
DX: I63.81 Other cerebral infarction due to occlusion or stenosis of small artery (principal)
CPT/HCPCS: 70551

== ENCOUNTER → 2021-07-10 09:16 | Outpatient (BNVA) | payer OTHER, SELFPAY | PROVIDERS: PCP Family Medicine; Visit Provider Internal Medicine Pulmonary Disease | DX: J12.89 Other viral pneumonia (principal); U09.9 Post COVID-19 condition, unspecified; R53.81 Other malaise; B94.8 Sequelae of other specified infectious and parasitic diseases; T78.40XA Allergy, unspecified, initial encounter; J98.4 Other disorders of lung; M79.89 Other specified soft tissue disorders | CPT/HCPCS: 99214 ==

== ENCOUNTER 2021-07-19 09:17 | Outpatient (CLI) | payer OTHER, SELFPAY ==
--- NOTE | 2021-07-19 09:50 | CT_ITS ---
WS: [id number] CT CHEST TECHNIQUE: Noncontrast CT of the chest with coronal and sagittal reformatted images. CLINICAL INFORMATION: dyspnea COMPARISON: CT chest November 14, 2020 DLP: 767.[address] scans at [facility] use at least one of these dose optimization techniques: automated e xposure control; mA and/or kV adjustment per patient size (includes targeted exams where dose is matc hed to clinical indication); or iterative reconstruction. FINDINGS: Previously described parenchymal cyst in the RIGHT upper lobe has decreased in size today measuring 2 .1 x 2.2 cm compared to 4.0 x 3.1 cm. Associated bronchiectasis in the RIGHT upper lobe. Surrounding parenchymal fibrosis. Small amount of surrounding calcification. Stable 4 mm nodule in the lingula. Scattered peripheral fibrosis in both lungs. A few calcified granu marsha. Normal caliber thoracic aorta. Normal caliber proximal main pulmonary arteries. No mediastinal or hil ar lymphadenopathy. No axillary lymphadenopathy. Cholecystectomy clips. Normal GE junction. Fatty atrophy of the pancreas. Adrenal glands are normal. Tiny low-attenuation lesion LEFT hepatic lobe is stable. This is too small characterize but likely he patic cyst. Hypertrophic changes upper thoracic spine. CT/CT chest wo con [id number] IMPRESSION: 1. Moderate chronic emphysematous change with scattered areas of parenchymal f ibrosis unchanged. 2. Cystic parenchymal lesion in the RIGHT upper lobe is decreased in size bryson uring 2.2 x 2.1 cm today. Surrounding bronchiectasis and fibrosis. Recommend 6 month follow-up. This may represent cystic bronchiectasis. 3. Noncalcified nodule in the lingula measuring 4 mm unchanged. 4. No mediastinal or hilar lymphadenopathy.
== END 2021-07-19 09:18 | disposition home or self-care (01) ==
LOC: RAD 09:18
PROVIDERS: PCP Family Medicine; Visit Provider Internal Medicine Pulmonary Disease
DX: R06.00 Dyspnea, unspecified (principal); R91.1 Solitary pulmonary nodule
CPT/HCPCS: 71250

== ENCOUNTER 2021-07-28 06:00 | Outpatient (RCR) | payer OTHER, SELFPAY | END 2021-08-26 23:59 | disposition home or self-care (01) | LOC: PULRHB 06:00 | PROVIDERS: PCP Family Medicine; Visit Provider Family Medicine | DX: G40.909 Epilepsy, unspecified, not intractable, without status epilepticus (principal); Z86.69 Personal history of other diseases of the nervous system and sense organs; U07.1 COVID-19 | CPT/HCPCS: 94626 ==

== ENCOUNTER → 2021-08-22 09:45 | Outpatient (BNVA) | payer OTHER, SELFPAY | PROVIDERS: PCP Family Medicine; Referring Provider Family Medicine; Visit Provider Surgery | DX: Z12.11 Encounter for screening for malignant neoplasm of colon (principal); Z80.0 Family history of malignant neoplasm of digestive organs | CPT/HCPCS: 99203 ==

== ENCOUNTER → 2021-09-06 07:48 | Outpatient (BNVA) | payer OTHER, SELFPAY | PROVIDERS: PCP Family Medicine; Visit Provider Specialist | DX: G40.909 Epilepsy, unspecified, not intractable, without status epilepticus (principal); I69.30 Unspecified sequelae of cerebral infarction; Z51.81 Encounter for therapeutic drug level monitoring; G56.23 Lesion of ulnar nerve, bilateral upper limbs; Z79.899 Other long term (current) drug therapy | CPT/HCPCS: 80164; 82140; 84450; 84460; 99214 ==

== ENCOUNTER 2021-10-13 08:00 | Day surgery (SDC) | payer OTHER, SELFPAY ==
[2021-10-11 10:49] VITALS: BMI 35.6
[2021-10-13 08:30] VITALS: BP 178/114; PULSE 71; RESP 18; TEMP 36.5; O2SAT 95
--- NOTE | 2021-10-13 08:54 | P.ANESASSM_ITS ---
Pre-Anesthetic Assessment Height/Weight: Height 1.85 m Weight 122.47 kg Temp Pulse Resp BP Pulse Ox 97.7 F 71 18 178/114 95 10/13/21 08:30 10/13/21 08:30 10/13/21 08:30 10/13/21 08:30 10/13/21 08:30 Preop Diagnosis: diagnostic Operation Date: 10/13/21 09:30 Proposed Procedures p Colonoscopy 04749/z12.11(Not Applicable) - Saud Marrero MD Familial anesthetic complications: during anesthesia Was Beta Johnathan taken within 24 hours: N/A Was Clonidine taken within 24 hours: N/A Last intake: Intake Last Liquid Date 10/12/21 Last Liquid Time 23:00 Last Solid Date 10/11/21 Last Solid Time 19:00 Social No alcohol and No tobacco Exam alert, oriented x 3, clear to auscultation bilaterally and regular rate & rhythm Airway Submandibular: within normal limits Cervical ROM: within normal limits Mallampati: Class II Pulmonary Chronic Obstructive Pulmonary Disease and Shortness of Breath Long COVID syndrome, restrictive lung dz CV/HEM Hypertension Metabolic Hyperlipidemia and Morbid Obesity Neuropsych Cerebrovascular Accident and Neuropathy Anesthetic Plan ASA status: 3 Anesthesia: MAC Medications/Allergies Home Medications Medication Instructions Recorded Confirmed Last Taken Type amlodipine 10 mg tablet 10 mg PO DAILY 10/06/19 10/13/21 10/13/21 History atorvastatin 20 mg tablet 20 mg PO DAILY 10/06/19 10/13/21 10/12/21 History omega-3 fatty acids 1,000 mg 1,000 mg PO DAILY 10/06/19 10/13/21 10/12/21 History capsule (Fish Oil Concentrate) ascorbic acid (vitamin C) 500 mg 500 mg PO DAILY 03/26/20 10/13/21 10/12/21 History tablet (Vitamin C) albuterol sulfate 90 mcg/actuation 1 inh INHALATION QID PRN #6.7 g 10/24/20 10/13/21 10/11/21 Rx aerosol inhaler (Ventolin HFA) folic acid 1 mg tablet 1 mg PO DAILY 10/24/20 10/13/21 10/12/21 History hydralazine 25 mg tablet 25 mg PO TID 10/24/20 10/13/21 10/12/21 History lisinopril 20 mg tablet 10 mg PO DAILY tab 0610/13/21 10/12/21 History carvedilol 25 mg tablet 25 mg PO BID 02/20/21 10/13/21 10/13/21 History glipizide 5 mg tablet 5 mg PO DAILY 02/20/21 10/13/21 10/12/21 History divalproex 500 mg tablet,delayed 1,000 mg PO ONCE #180 tab 09/12/21 10/13/21 10/12/21 Rx release Allergies Allergy/AdvReac Type Severity Reaction Status Date / Time aspirin Allergy ALGY-Anaphy Verified 08/22/21 09:51 laxis metformin AdvReac ADR-Diarrhe Verified 08/22/21 09:51 a NSAIDS (Non-Steroidal AdvReac ADR-Swelling Verified 08/22/21 09:51 Anti-Inflamma of the Eye [facility] Anesthesia Medical History COVID-19 Essential (primary) hypertension Hyperlipidemia Spondylolysis, lumbosacral region Type 2 diabetes mellitus with hyperglycemia Vitamin D deficiency Surgical History History of carpal tunnel release (~2013) RIGHT History of cholecystectomy (~2009) History of colonoscopy 2010 S/P left knee arthroscopy Family History Mother Dementia Hypertension Hyperlipidemia Sister Hypertension Other Anesthesia complication Cancer Diabetes Social History Smoking and tobacco status: never smoked Second hand smoke exposure: Yes Smoking risk assessment/counseling performed?: Yes Alcohol intake: never Lives independently: Yes Household members: none Housing: House Marital status: Single Highest education level completed: High School Graduate service: Yes Current occupational status: unemployed and disabled Current occupation: Allied Health Professional Current occupational exposures/hazards: No Pets and animals: No History of recent travel: No Current gender identity: Male Data Anesthesia Cardiac Studies: Echocardiogram 02/22/21
[2021-10-13] MEDS: sodium chloride 0.9% 1,000 ML 30 ML IV (09:01)
--- NOTE | 2021-10-13 10:02 | P.HP_ITS ---
Same Day Surgery H&P Indication for Procedure/HPI DATE OF PROCEDURE: October 13, 2021 CHIEF COMPLAINT/INDICATIONFOR SURGICAL PROCEDURE: colonoscopy PREOP DIAGNOSIS: diagnostic PLANNED PROCEDURE: Operation Date: 10/13/21 09:30 Proposed Procedures p Colonoscopy 95600/z12.11(Not Applicable) - Saud Marrero MD Medications/Allergies* Home Medications Medication Instructions Recorded Confirmed Type amlodipine 10 mg tablet 10 mg PO DAILY 10/06/19 10/13/21 History atorvastatin 20 mg tablet 20 mg PO DAILY 10/06/19 10/13/21 History omega-3 fatty acids 1,000 mg 1,000 mg PO DAILY 10/06/19 10/13/21 History capsule (Fish Oil Concentrate) ascorbic acid (vitamin C) 500 mg 500 mg PO DAILY 03/26/20 10/13/21 History tablet (Vitamin C) folic acid 1 mg tablet 1 mg PO DAILY 10/24/20 10/13/21 History hydralazine 25 mg tablet 25 mg PO TID 10/24/20 10/13/21 History lisinopril 20 mg tablet 10 mg PO DAILY tab 10/24/20 10/13/21 History carvedilol 25 mg tablet 25 mg PO BID 02/20/21 10/13/21 History glipizide 5 mg tablet 5 mg PO DAILY 02/20/21 10/13/21 History Allergies/Adverse Reactions Allergy/AdvReac Type Severity Reaction Status Date / Time aspirin Allergy ALGY-Anaphy Verified 08/22/21 09:51 laxis metformin AdvReac ADR-Diarrhe Verified 08/22/21 09:51 a NSAIDS (Non-Steroidal AdvReac ADR-Swelling Verified 08/22/21 09:51 Anti-Inflamma of the Eye Current Medications: Generic Name Dose Route Start Last Admin Trade Name Freq PRN Reason Stop Dose Admin Sodium Chloride 1,000 mls @ 30 mls/hr 10/13/21 08:45 10/13/21 09:01 Sodium Chloride 0.9% IV 10/14/21 08:44 30 mls/hr .Q24H ABRAN Administration Pertinent History/Comorbid Conditions* Medical History (Updated 08/22/21 @ 10:17 by Saud Marrero MD) COVID-19 Essential (primary) hypertension Hyperlipidemia Spondylolysis, lumbosacral region Type 2 diabetes mellitus with hyperglycemia Vitamin D deficiency Surgical History (Updated 08/22/21 @ 10:15 by Saud Marrero MD) History of carpal tunnel release (~2013) RIGHT History of cholecystectomy (~2009) History of colonoscopy 2009 S/P left knee arthroscopy Family History (Updated 03/27/20 @ 14:47 by JOHNSON Alamo-C) Diabetes Dementia Mother Hyperlipidemia Mother Anesthesia complication Cancer Hypertension Mother Sister Social History Smoking and tobacco status: never smoked Second hand smoke exposure: Yes Smoking risk assessment/counseling performed?: Yes Alcohol intake: never Lives independently: Yes Household members: none Housing: House Marital status: Single Highest education level completed: High School Graduate service: Yes Current occupational status: unemployed and disabled Current occupation: Dispatcher Maintenance Service Current occupational exposures/hazards: No Pets and animals: No History of recent travel: No Current gender identity: Male Pertinent Exam Findings alert, oriented x 3 and regular rate & rhythm Recommendations Surgery/Procedure today Coding Level of Care Code Acute Import And Export Clerk for Elizabeth Major
[2021-10-13 10:55] VITALS: BP 114/66; PULSE 63; RESP 14; TEMP 36.1; O2SAT 95
[2021-10-13 11:04] VITALS: BP 119/72; PULSE 67; RESP 16; O2SAT 97
[2021-10-13 11:11] VITALS: BP 132/85; PULSE 75; RESP 16; O2SAT 95
--- NOTE | 2021-10-13 11:13 | ANE.PACU2 ---
Inpatient post-anesthesia follow up: Airway intact: Yes Vital signs: Temperature 97.0 F Pulse Rate 67 Respiratory Rate 16 Blood Pressure 119/72 Pulse Oximetry 97 Oxygen Delivery Me thod Room Air Oxygen Flow Rate Fraction of Inspir ed Oxygen Hydration adequate: Yes Nausea and vomiting: No Pain level: 1 Mental status: Baseline
== END 2021-10-13 11:25 | disposition home or self-care (01) ==
PROVIDERS: PCP Family Medicine; Visit Provider Surgery
PROC: 0DJD8ZZ Inspection of Lower Intestinal Tract, Via Natural or Artificial Opening Endoscopic (ICD-10-PCS; CPT 45378; principal; 2021-10-13 09:30)
DX: Z12.11 Encounter for screening for malignant neoplasm of colon (principal); D12.0 Benign neoplasm of cecum; D12.5 Benign neoplasm of sigmoid colon; Z86.16 Personal history of COVID-19; K64.8 Other hemorrhoids; E78.5 Hyperlipidemia, unspecified; I10 Essential (primary) hypertension; E11.65 Type 2 diabetes mellitus with hyperglycemia; E55.9 Vitamin D deficiency, unspecified
CPT/HCPCS: 45381; 45385; 88305; J2704; J7030

== ENCOUNTER → 2021-10-31 09:16 | Outpatient (BNVA) | payer OTHER, SELFPAY | PROVIDERS: PCP Family Medicine; Visit Provider Surgery | DX: K63.5 Polyp of colon (principal) | CPT/HCPCS: 99212 ==

== ENCOUNTER 2021-12-28 09:48 | Outpatient (CLI) | payer OTHER, SELFPAY ==
--- NOTE | 2021-12-28 10:00 | CT_ITS ---
WS: [id number] CT CHEST WITHOUT INTRAVENOUS CONTRAST HISTORY: 6 month f/u lung nodule TECHNIQUE: Contiguous 5 mm axial imaging performed on the thorax. Coronal and sagittal reformats are submitted. All CT scans at [facility] use at least one of these dose optimization techniques: automated exposure control; mA and/or kV adjustment per patient size (includes targeted exams where dose is matched to clinical indication); or iterative reconstruction. CONTRAST: None DLP: 737.79 mGy.cm COMPARISON: 11/14/2020 and 07/19/2021 Lungs and central airway: Lung volumes are mildly decreased. Increased reticular opacifications in lesley ng volumes are slightly decreased. Again noted is a cavitary/thin wall cystic lesion which has been p reviously described in the RIGHT upper lobe. The cystic component has collapsed now measuring 13 x 10 mm. There is a small amount of debris or intraluminal nodule measuring 6 mm. Adjacent dilatation of the bronchial tree with a branching pattern. There is mild bronchial wall thickening and dilatation e xtending to the cystic lesion. Otherwise no change. Ovoid 5 mm nodule in the lingula. Focal scar at t he RIGHT lung base. Pleura: Normal. No pleural effusion. Heart and pericardium: Normal size heart with no pericardial effusion. Mediastinum and lesly: No mediastinum or hilar adenopathy. Vessels: Normal size aortic and pulmonary artery. No coronary artery calcifications. Chest wall and lower neck: No soft tissue masses. Upper abdomen: Prior cholecystectomy. Mild hepatic steatosis. Low-attenuation lesion in the LEFT lobe of the liver similar size to prior studies. Small hiatal hernia. No adrenal mass. Osseous structures: Stable sclerotic foci in several of the posterior RIGHT ribs. CT/CT chest wo con [id number] IMPRESSION: 1. Continued decrease in size of the cavitary mass in the RIGHT upper lobe. Th e cystic component now measures 13 x 10 mm. There is a small amount of intracav itary debris or nodule measuring 6 mm. There is within an area of cystic bronch iectasis. These changes may all be post infectious in etiology. Suggest yearly evaluation and follow-up for several years to confirm no progression of finding s. 2. Stable 5 mm nodule at the lingula.
== END 2021-12-28 09:49 | disposition home or self-care (01) ==
PROVIDERS: PCP Family Medicine; Visit Provider Internal Medicine Pulmonary Disease
DX: R91.1 Solitary pulmonary nodule (principal)
CPT/HCPCS: 71250

== ENCOUNTER → 2022-01-10 10:40 | Outpatient (BNVA) | payer OTHER, SELFPAY | PROVIDERS: PCP Family Medicine; Visit Provider Internal Medicine Pulmonary Disease | DX: R06.00 Dyspnea, unspecified (principal); U09.9 Post COVID-19 condition, unspecified; R53.81 Other malaise; T78.40XA Allergy, unspecified, initial encounter; J98.4 Other disorders of lung | CPT/HCPCS: 99214 ==

== ENCOUNTER 2022-03-07 07:51 | Outpatient (CLI) | payer OTHER, SELFPAY | END 2022-03-07 07:52 | disposition home or self-care (01) | LOC: RT 07:52 | PROVIDERS: PCP Family Medicine; Visit Provider Internal Medicine Pulmonary Disease | DX: R41.840 Attention and concentration deficit (principal); U09.9 Post COVID-19 condition, unspecified | CPT/HCPCS: 94060; 94618; 94726; 94729; J7613 ==

== ENCOUNTER 2022-03-28 15:43 | Emergency (ER) | payer OTHER, SELFPAY ==
[2022-03-28 16:04] VITALS: BP 122/78; PULSE 75; RESP 16; TEMP 36.7; O2SAT 95; BMI 34.2
--- NOTE | 2022-03-28 16:47 | XRR_ITS ---
PROCEDURE INFORMATION: Exam: XR Chest Exam date and time: 03/28/2022 4:55 PM Age: 52 years old Clinical indication: Cough TECHNIQUE: Imaging protocol: Radiologic exam of the chest. Views: 1 view. COMPARISON: CT chest con [id number] 12/28/2021 9:53 AM FINDINGS: Lungs: Stable interstitial scarring in both lungs. Stable fibrosis with bronchiectasis in the right upper lobe. No consolidation. Pleural spaces: Unremarkable. No pleural effusion. No pneumothorax. Heart/Mediastinum: Unremarkable. No cardiomegaly. Bones/joints: Unremarkable. XR/XR chest 1V portable [id number] IMPRESSION: No acute findings.
[2022-03-28 16:51] VITALS: BP 132/89; PULSE 103; RESP 14; O2SAT 95
[2022-03-28 16:54] VITALS: O2SAT 95
--- NOTE | 2022-03-28 17:16 | ED_ITS ---
Documented by User: Orin Moreira MD 03/28/22 17:19 HPI - COVID General: Chief Complaint: COVID symptoms Stated Complaint: 02 no staying up and [facility] Time Seen by Provider: 03/28/22 16:12 Triage information: Has fever, cough or shortness of breath . No known COVID + exposure last 14 days History of Present Illness: 52-year-old male who presents with a 2-day history of URI type symptoms. He states he had a runny nose with clear nasal drainage. He has had a nonproductive cough and some body aches and low-grade fevers. He has a history of COVID-pneumonia and ongoing issues with shortness of breath and oxygen needs post-COVID. He is typically on anywhere from 2 to 4 L of oxygen. He states that his oxygen needs have not increased but [facility] and viral testing done. He denies nausea, vomiting or diarrhea. He denies any chest pain. He denies ill contacts. COVID 19 common symptoms: positive fever(s), chills, non-productive cough, body aches and nasal congestion; negative productive cough, dyspnea, headache(s), throat pain, nausea, vomiting or diarrhea COVID 19 other sytmptoms: negative chest pain COVID Results: SARS-CoV-2 RNA (RT-PCR) Detected (NOT DETECTED) A 03/23/20 08: 59 Nasal/Oral Coronavirus 2019 PCR Not detected 11/10/20 10:22 SARS-CoV-2 (PCR) Not detected (NOT DETECT) 03/28/22 15:39 Coronavirus Type 229E (PCR) Not detected (NOT DETECT) 03/28/22 15:39 Review of Systems Const: Reports: fever(s), chills and body aches Eyes: Denies: change in vision ENMT: Reports: nasal discharge and nasal congestion; Denies: throat pain Card: Denies: chest pain Resp: Reports: non-productive cough; Denies: dyspnea, productive cough or wheezing GI: Denies: nausea, vomiting or diarrhea : Denies: difficulty urinating Musc: Reports: joint pain Skin/Breast: Denies: rash Neuro: Denies: headache(s) PFSH ED PFSH: Medical History COVID-19 Essential (primary) hypertension Hyperlipidemia Spondylolysis, lumbosacral region Type 2 diabetes mellitus with hyperglycemia Vitamin D deficiency Surgical History History of carpal tunnel release (~2013) RIGHT History of cholecystectomy (~2009) History of colonoscopy (10/13/21) 2010 S/P left knee arthroscopy Family History Mother Dementia Hypertension Hyperlipidemia Sister Hypertension Other Anesthesia complication Cancer Diabetes Social History Smoking and tobacco status: never smoked Second hand smoke exposure: Yes Smoking risk assessment/counseling performed?: Yes Alcohol intake: never Lives independently: Yes Household members: none Housing: House Marital status: Single Highest education level completed: High School Graduate service: Yes Current occupational status: unemployed and disabled Current occupation: Agricultural Equipment Mechanic Current occupational exposures/hazards: No Pets and animals: No History of recent travel: No Current gender identity: Male Physical Exam Narrative: EXAM NARRATIVE: General: alert, NAD HEENT: conj clear, EOMI, PERRL, mmm, Neck: supple, no meningismus, healed trach scar Heme: no cervical LAP Pulmonary: CTAB, no wheezing, rhonchi, crackles Cardiovascular: rrr, nl s1s2, no mrg Abdomen: soft, nt, nd, no r/g, bs+ Extremities: pulses +, no edema, no c/c, : no CVA tenderness Skin: intact, no rash MSK: no back or neck pain Neurologic: grossly intact Course Vital Signs: Vital signs: Vital Signs Temperature 98.1 F 03/28/22 16:04 Pulse Rate 103 H 03/28/22 16:51 Respiratory Rate 14 03/28/22 16:51 Blood Pressure 132/89 03/28/22 16:51 Pulse Oximetry 95 03/28/22 16:54 Oxygen Delivery Me thod 03/28/22 16:54 Oxygen Flow Rate 2 03/28/22 16:54 MDM - COVID Medical Decision Making 52-year-old male with a history of COVID-pneumonia who presents with a 2-day history of viral URI type symptoms. He is in no respiratory distress at this time. Lungs are clear. He is afebrile here. Oxygen saturation is stable on his baseline oxygen needs. Will obtain a chest x-ray, influenza and COVID swabs. Lab Data Radiology Impressions Chest X-Ray 03/28/22 16:47 IMPRESSION: No acute findings. Laboratory Results Nasal Influ A H1 2009 PCR Detected (NOT DETECT) A 03/28/22 15:39 Adenovirus (PCR) Not detected (NOT DETECT) 03/28/22 15:39 C. pneumoniae DNA (PCR) Not detected (NOT DETECT) 03/28/22 15:39 Coronavirus 229E (PCR) Not detected (NOT DETECT) 03/28/22 15:39 Human Metapneumovir PCR Not detected (NOT DETECT) 03/28/22 15:39 Influenza A (H1) PCR Not detected (NOT DETECT) 03/28/22 15:39 Influenza A (H3) PCR Not detected (NOT DETECT) 03/28/22 15:39 Influenza Type A (PCR) Detected (NOT DETECT) A 03/28/22 15:39 Influenza Type B (PCR) Not detected (NOT DETECT) 03/28/22 15:39 M. pneumoniae (PCR) Not detected (NOT DETECT) 03/28/22 15:39 Parainfluenza 1 (PCR) Not detected (NOT DETECT) 03/28/22 15:39 Parainfluenza 2 (PCR) Not detected (NOT DETECT) 03/28/22 15:39 Parainfluenza 3 (PCR) Not detected (NOT DETECT) 03/28/22 15:39 Parainfluenza 4 (PCR) Not detected (NOT DETECT) 03/28/22 15:39 RSV Type A (PCR) Not detected (NOT DETECT) 03/28/22 15:39 RSV Type B (PCR) Not detected (NOT DETECT) 03/28/22 15:39 Entero/Rhino (PCR) Not detected (NOT DETECT) 03/28/22 15:39 SARS-CoV-2 (PCR) Not detected (NOT DETECT) 03/28/22 15:39 SARS-CoV-2 RNA (RT-PCR) Detected (NOT DETECTED) A 03/23/20 08: 59 Nasal/Oral Coronavirus 2019 PCR Not detected 11/10/20 10:22 SARS-CoV-2 (PCR) Not detected (NOT DETECT) 03/28/22 15:39 Coronavirus Type 229E (PCR) Not detected (NOT DETECT) 03/28/22 15:39 Discharge Plan Discharge Patient Disposition: Home Clinical Impression: Influenza A Condition: Stable Prescriptions: No Action amlodipine 10 mg tablet 10 mg PO DAILY omega-3 fatty acids [Fish Oil Concentrate] 1,000 mg capsule 1,000 mg PO DAILY atorvastatin 20 mg tablet 80 mg PO DAILY hydralazine 25 mg tablet 25 mg PO TID folic acid 1 mg tablet 1 mg PO DAILY albuterol sulfate [Ventolin HFA] 90 mcg/actuation HFA aerosol inhaler 1 inh inhalation QID PRN (Reason: shortness of breath or wheezing) Qty: 6.7 3RF lisinopril 20 mg tablet 20 mg PO DAILY carvedilol 25 mg tablet 25 mg PO BID Rx Instructions: must administer with a meal/food glipizide 5 mg tablet 10 mg PO BID divalproex 500 mg tablet,delayed release (DR/EC) 1,000 mg PO ONCE Qty: 180 3RF Rx Instructions: Take 2 tabs daily (500mg X2 once daily) ascorbic acid (vitamin C) [Vitamin C] 500 mg Tablet 500 mg PO DAILY Discharge Orders: Discharge ED (Routine); Ordered 03/28/22 Ordered By: Jonelle Richmond Referrals: Lindsey Parnell MD [Primary Care Provider] - 1-3 days Discharge Diet: Advance as tolerated Discharge Activity: Resume usual activity Patient Instructions: Influenza (ED) Coding Level of Care Code ED Senior Strategy Manager for [facility]g [facility]wd Documented by User: Jonelle Richmond MD 03/28/22 18:59 HPI - COVID General: Chief Complaint: COVID symptoms Stated Complaint: 02 no staying up [facility] Time Seen by Provider: 03/28/22 16:12 COVID Results: SARS-CoV-2 RNA (RT-PCR) Detected (NOT DETECTED) A 03/23/20 08: 59 Nasal/Oral Coronavirus 2019 PCR Not detected 11/10/20 10:22 SARS-CoV-2 (PCR) Not detected (NOT DETECT) 03/28/22 15:39 Coronavirus Type 229E (PCR) Not detected (NOT DETECT) 03/28/22 15:39 PFSH ED PFSH: Medical History COVID-19 Essential (primary) hypertension Hyperlipidemia Spondylolysis, lumbosacral region Type 2 diabetes mellitus with hyperglycemia Vitamin D deficiency Surgical History History of carpal tunnel release (~2013) RIGHT History of cholecystectomy (~2009) History of colonoscopy (10/13/21) 2010 S/P left knee arthroscopy Family History Mother Dementia Hypertension Hyperlipidemia Sister Hypertension Other Anesthesia complication Cancer Diabetes Social History Smoking and tobacco status: never smoked Second hand smoke exposure: Yes Smoking risk assessment/counseling performed?: Yes Alcohol intake: never Lives independently: Yes Household members: none Housing: House Marital status: Single Highest education level completed: High School Graduate service: Yes Current occupational status: unemployed and disabled Current occupation: Agricultural Equipment Mechanic Current occupational exposures/hazards: No Pets and animals: No History of recent travel: No Current gender identity: Male Course Vital Signs: Vital signs: Vital Signs Temperature 98.1 F 03/28/22 16:04 Pulse Rate 103 H 03/28/22 16:51 Respiratory Rate 14 03/28/22 16:51 Blood Pressure 132/89 03/28/22 16:51 Pulse Oximetry 95 03/28/22 16:54 Oxygen Delivery Me thod 03/28/22 16:54 Oxygen Flow Rate 2 03/28/22 16:54 MDM - COVID Medical Decision Making 52-year-old male with a history of COVID-pneumonia who presents with a 2-day his tory of viral URI type symptoms. He is in no respiratory distress at this time. Lungs are clear. He is afebrile here. Oxygen saturation is stable on his baseline oxygen needs. Will obtain a chest x-ray, influenza and COVID swabs. Patient presents here for influenza he is well-appearing here x-ray shows no pneumonia he is stable for discharge he is to follow-up with his PCP and return if worsening. Lab Data Radiology Impressions Chest X-Ray 03/28/22 16:47 IMPRESSION: No acute findings. Laboratory Results Nasal Influ A H1 2009 PCR Detected (NOT DETECT) A 03/28/22 15:39 Adenovirus (PCR) Not detected (NOT DETECT) 03/28/22 15:39 C. pneumoniae DNA (PCR) Not detected (NOT DETECT) 03/28/22 15:39 Coronavirus 229E (PCR) Not detected (NOT DETECT) 03/28/22 15:39 Human Metapneumovir PCR Not detected (NOT DETECT) 03/28/22 15:39 Influenza A (H1) PCR Not detected (NOT DETECT) 03/28/22 15:39 Influenza A (H3) PCR Not detected (NOT DETECT) 03/28/22 15:39 Influenza Type A (PCR) Detected (NOT DETECT) A 03/28/22 15:39 Influenza Type B (PCR) Not detected (NOT DETECT) 03/28/22 15:39 M. pneumoniae (PCR) Not detected (NOT DETECT) 03/28/22 15:39 Parainfluenza 1 (PCR) Not detected (NOT DETECT) 03/28/22 15:39 Parainfluenza 2 (PCR) Not detected (NOT DETECT) 03/28/22 15:39 Parainfluenza 3 (PCR) Not detected (NOT DETECT) 03/28/22 15:39 Parainfluenza 4 (PCR) Not detected (NOT DETECT) 03/28/22 15:39 RSV Type A (PCR) Not detected (NOT DETECT) 03/28/22 15:39 RSV Type B (PCR) Not detected (NOT DETECT) 03/28/22 15:39 Entero/Rhino (PCR) Not detected (NOT DETECT) 03/28/22 15:39 SARS-CoV-2 (PCR) Not detected (NOT DETECT) 03/28/22 15:39 SARS-CoV-2 RNA (RT-PCR) Detected (NOT DETECTED) A 03/23/20 08: 59 Nasal/Oral Coronavirus 2019 PCR Not detected 11/10/20 10:22 SARS-CoV-2 (PCR) Not detected (NOT DETECT) 03/28/22 15:39 Coronavirus Type 229E (PCR) Not detected (NOT DETECT) 03/28/22 15:39 Discharge Plan Discharge Patient Disposition: Home Clinical Impression: Influenza A Condition: Stable Prescriptions: No Action amlodipine 10 mg tablet 10 mg PO DAILY omega-3 fatty acids [Fish Oil Concentrate] 1,000 mg capsule 1,000 mg PO DAILY atorvastatin 20 mg tablet 80 mg PO DAILY hydralazine 25 mg tablet 25 mg PO TID folic acid 1 mg tablet 1 mg PO DAILY albuterol sulfate [Ventolin HFA] 90 mcg/actuation HFA aerosol inhaler 1 inh inhalation QID PRN (Reason: shortness of breath or wheezing) Qty: 6.7 3RF lisinopril 20 mg tablet 20 mg PO DAILY carvedilol 25 mg tablet 25 mg PO BID Rx Instructions: must administer with a meal/food glipizide 5 mg tablet 10 mg PO BID divalproex 500 mg tablet,delayed release (DR/EC) 1,000 mg PO ONCE Qty: 180 3RF Rx Instructions: Take 2 tabs daily (500mg X2 once daily) ascorbic acid (vitamin C) [Vitamin C] 500 mg Tablet 500 mg PO DAILY Discharge Orders: Discharge ED (Routine); Ordered 03/28/22 Ordered By: Jonelle Richmond Referrals: Lnidsey Parnell MD [Primary Care Provider] - 1-3 days Discharge Diet: Advance as tolerated Discharge Activity: Resume usual activity Patient Instructions: Influenza (ED) Coding Level of Care Code ED Senior Strategy Manager for Elizabeth Major
[2022-03-28 18:37] LABS: Adenovirus Not Detected (NOT DETECT); Chlamydia Pneumoniae Not Detected (NOT DETECT); Coronavirus 229E,HKU1,NL63,OC4 Not Detected (NOT DETECT); Human Metapneumovirus Not Detected (NOT DETECT); Human Rhinovirus/Enterovirus Not Detected (NOT DETECT); Influenza A Detected (NOT DETECT); Influenza A H1 Not Detected (NOT DETECT); Influenza A H1-2009 Detected (NOT DETECT); Influenza A H3 Not Detected (NOT DETECT); Influenza B Not Detected (NOT DETECT); Mycoplasma Pneumoniae Not Detected (NOT DETECT); Parainfluenza Virus Type 1 Not Detected (NOT DETECT); Parainfluenza Virus Type 2 Not Detected (NOT DETECT); Parainfluenza Virus Type 3 Not Detected (NOT DETECT); Parainfluenza Virus Type 4 Not Detected (NOT DETECT); Respiratory Syncytial Virus A Not Detected (NOT DETECT); Respiratory Syncytial Virus B Not Detected (NOT DETECT); SARS-COV-2 Not Detected (NOT DETECT)
[2022-03-28] MEDS: dexamethasone 10 mg/mL INJ IVP (19:10)
== END 2022-03-28 19:15 | disposition home or self-care (01) ==
PROVIDERS: Emergency Medicine; Emergency Provider Emergency Medicine; PCP Family Medicine
DX: J10.1 Influenza due to other identified influenza virus with other respiratory manifestations (principal); Z79.84 Long term (current) use of oral hypoglycemic drugs; I10 Essential (primary) hypertension; E78.5 Hyperlipidemia, unspecified; E11.9 Type 2 diabetes mellitus without complications; Z77.22 Contact with and (suspected) exposure to environmental tobacco smoke (acute) (chronic)
CPT/HCPCS: 71045; 87486; 87581; 87633; 96374; 99284; J1100

== ENCOUNTER → 2022-07-30 08:27 | Outpatient (BNVA) | payer OTHER, SELFPAY | PROVIDERS: PCP Family Medicine; Visit Provider Internal Medicine Pulmonary Disease | DX: J98.4 Other disorders of lung (principal); R53.81 Other malaise; U09.9 Post COVID-19 condition, unspecified; Z91.09 Other allergy status, other than to drugs and biological substances; R06.00 Dyspnea, unspecified | CPT/HCPCS: 99214 ==

== ENCOUNTER → 2022-08-27 14:17 | Outpatient (BNVA) | payer OTHER, SELFPAY | PROVIDERS: PCP Family Medicine; Referring Provider Family Medicine; Visit Provider Dermatology | DX: D22.39 Melanocytic nevi of other parts of face (principal); L82.1 Other seborrheic keratosis; L73.8 Other specified follicular disorders; L57.8 Other skin changes due to chronic exposure to nonionizing radiation | CPT/HCPCS: 11102; 99203 ==

== ENCOUNTER → 2022-09-05 08:00 | Outpatient (BNVA) | payer OTHER, SELFPAY | PROVIDERS: PCP Family Medicine; Visit Provider Specialist | DX: R56.9 Unspecified convulsions (principal); F98.8 Other specified behavioral and emotional disorders with onset usually occurring in childhood and adolescence; G43.711 Chronic migraine without aura, intractable, with status migrainosus; G50.8 Other disorders of trigeminal nerve; G56.23 Lesion of ulnar nerve, bilateral upper limbs; R41.840 Attention and concentration deficit; U09.9 Post COVID-19 condition, unspecified | CPT/HCPCS: 99215 ==

== ENCOUNTER 2022-09-21 15:03 | Outpatient (CLI) | payer OTHER, MEDICARE, SELFPAY ==
--- NOTE | 2022-09-21 15:30 | MR_ITS ---
WS: [id number] MRI BRAIN WITHOUT CONTRAST HISTORY: I63.9 - Cerebral infarction, unspecified COMPARISON: 07/07/2021, head CT 11/20/2013. TECHNIQUE: Diffusion imaging, multiplanar T1, T2 and FLAIR imaging obtained. Diffusion-weighted imaging is normal. No ischemia. Multiple chronic infarcts are reidentified with en cephalomalacia and gliosis. Associated hemosiderin involving infarcts in the LEFT frontal, parietal, occipital and cerebellum. Additional chronic infarcts within the posterior RIGHT frontal, RIGHT josue agittal parietal lobe and RIGHT occipital lobe additional infarcts with encephalomalacia and hemoside rin. Smaller tiny hemorrhagic infarct in the RIGHT cerebellum. No obvious hemorrhagic infarcts appear to have increased in size since 07/07/2021. No new infarct. Ple ase note no underlying vascular malformations were noted on the CT from 2013 with contrast. Ventricles and extra-axial spaces are normal. No inferior displacement of cerebellar tonsils. The sella turcica and pituitary gland are unremarkabl e. Dural venous sinuses and [place] demonstrate no abnormality on this unenhanced studies. Paranasal sinuses: Small bilateral mucous retention cysts in the maxillary sinuses. Mastoid air cells: Normal. Calvarium and scalp: Intact. MR/MR head wo con* [id number] IMPRESSION: 1. No acute infarct or acute hemorrhage. 2. Multifocal, bilateral hemorrhagic infarcts of various sizes. Similar size a nd distribution as compared to 07/07/2021.
== END 2022-09-21 15:04 | disposition home or self-care (01) ==
PROVIDERS: PCP Family Medicine; Visit Provider Specialist
DX: I69.30 Unspecified sequelae of cerebral infarction (principal)
CPT/HCPCS: 70551

== ENCOUNTER → 2022-11-06 07:42 | Outpatient (BNVA) | payer OTHER, SELFPAY | PROVIDERS: PCP Family Medicine; Visit Provider Specialist | DX: G50.8 Other disorders of trigeminal nerve (principal); F98.8 Other specified behavioral and emotional disorders with onset usually occurring in childhood and adolescence; G56.23 Lesion of ulnar nerve, bilateral upper limbs; I69.30 Unspecified sequelae of cerebral infarction; R41.840 Attention and concentration deficit; U09.9 Post COVID-19 condition, unspecified | CPT/HCPCS: 99214 ==

== ENCOUNTER 2022-12-06 19:22 | Emergency (ER) | payer OTHER, SELFPAY ==
[2022-12-06 19:47] VITALS: BP 149/89; PULSE 85; RESP 20; TEMP 36.8; O2SAT 96; BMI 33.7
--- NOTE | 2022-12-06 20:01 | ED_ITS ---
HPI - Skin/Abscess/Foreign Bdy General: Chief complaint: Skin/Abscess/Foreign Body Stated complaint: Left Hand Swollen Time Seen by Provider: 12/06/22 20:01 History of Present Illness: A 52-year-old male patient comes in today with swelling to the dorsal left hand. Patient reports being stung by a wasp this afternoon. Patient appears nontoxic. Patient appears in mild pain. Patient denies any nausea or difficulty breathing. Review of Systems General: Reports: 10 or more systems reviewed and unremarkable except in HPI and below Musc: Reports: extremity pain and extremity swelling PFSH ED PFSH: Medical History COVID-19 Essential (primary) hypertension Hyperlipidemia Spondylolysis, lumbosacral region Type 2 diabetes mellitus with hyperglycemia Vitamin D deficiency Surgical History History of carpal tunnel release (~2013) RIGHT History of cholecystectomy (~2009) History of colonoscopy (10/13/21) 2010 S/P left knee arthroscopy Family History Mother Dementia Hypertension Hyperlipidemia Sister Hypertension Other Anesthesia complication Cancer Diabetes Social History Smoking and tobacco status: never smoked Second hand smoke exposure: Yes Smoking risk assessment/counseling performed?: Yes Alcohol intake: never Substance/Drug Use: never Lives independently: Yes Household members: none Housing: House Marital status: Single Highest education level completed: High School Graduate service: Yes Current occupational status: unemployed and disabled Current occupation: Retail Customer Service Specialist Current occupational exposures/hazards: No Pets and animals: No Do you think of yourself as: Straight/Heterosexual Current gender identity: Male Physical Exam Const: COMMON NORMALS: alert HENMT: COMMON NORMALS: normocephalic HEAD & SCALP: normocephalic Neck/C-Spine: COMMON NORMALS: full ROM Resp: COMMON NORMALS: normal respiratory effort and clear to auscultation bilaterally AUSCULTATION: clear to auscultation bilaterally Cardio: COMMON NORMALS: regular rate and regular rhythm RATE: regular rate RHYTHM: regular rhythm Extremity: LEFT UPPER EXTREMITY: Yes hand & digits (Swelling and redness dorsal left hand) Neuro: SENSORIUM/ORIENTATION: Yes alert Skin: NARRATIVE SKIN EXAM: Redness dorsal left hand Course Vital Signs: Vital signs: Vital Signs Temperature 98.3 F 12/06/22 19:47 Pulse Rate 85 12/06/22 19:47 Respiratory Rate 20 H 12/06/22 19:47 Blood Pressure 149/89 12/06/22 19:47 Pulse Oximetry 96 12/06/22 19:47 MDM - Skin/Abscess/Foreign Bdy Medicial Decision Making 52-year-old male patient comes in with a wasp sting to the dorsal left hand. On exam patient has increased swelling and tenderness to the dorsal left hand with mild redness. Most of the swelling in tenderness is localized to the dorsal part of the left hand with no extension into the forearm. Respirations are even lungs are clear to auscultation. Vital signs are normal. Differential diagnosis includes local reaction to insect bite/sting, anaphylaxis, allergic reaction, contusion. Patient had a sting to the hand which is caused a localized reaction. Patient was given a dose of steroid to help with the swelling and recommended to use acetaminophen and Benadryl otherwise. Patient reported understanding and agreed to plan. Discharge Plan Discharge Patient Disposition: Home Clinical Impression: Accidental wasp sting Condition: Stable Prescriptions: No Action amlodipine 10 mg tablet 10 mg PO DAILY omega-3 fatty acids [Fish Oil Concentrate] 1,000 mg capsule 1,000 mg PO DAILY atorvastatin 20 mg tablet 80 mg PO DAILY hydralazine 25 mg tablet 25 mg PO TID folic acid 1 mg tablet 1 mg PO DAILY albuterol sulfate [Ventolin HFA] 90 mcg/actuation HFA aerosol inhaler 1 inh inhalation QID PRN (Reason: shortness of breath or wheezing) Qty: 6.7 3RF lisinopril 20 mg tablet 20 mg PO DAILY carvedilol 25 mg tablet 25 mg PO BID Rx Instructions: must administer with a meal/food Jardiance 25 mg tablet 25 mg PO DAILY divalproex 500 mg tablet,delayed release (DR/EC) 1,000 mg PO ONCE 90 Days Qty: 180 3RF Rx Instructions: Take 2 tabs daily (500mg X2 once daily) Ozempic 0.25 mg or 0.5 mg(2 mg/1.5 mL) pen injector SUBCUT .1x a week ascorbic acid (vitamin C) [Vitamin C] 500 mg Tablet 500 mg PO DAILY Discharge Orders: Discharge ED (Routine); Ordered 12/06/22 Ordered By: Niko Malhotra Referrals: Lindsey Parnell MD [Primary Care Provider] - Discharge Diet: Usual diet Discharge Activity: Increase activity as tolerated Patient Instructions: Insect Bite or Sting (ED) Activity Restrictions/Additional Instructions: Use acetaminophen as needed for pain and discomfort. You can also use ice packs for further pain relief. Use diphenhydramine for redness and itching. Follow- up with primary care for further instructions. Return to ED for new concerns. You were given a dose of steroid that will increase your blood sugar for 2 to 3 days but then you should see the return to your normal levels. Coding Level of Care Code ED Radiator Specialist for Elizabeth Major
[2022-12-06] MEDS: dexamethasone 10 mg/mL INJ IM (20:16)
== END 2022-12-06 20:19 | disposition home or self-care (01) ==
PROVIDERS: Emergency Provider Nurse Practitioner Family; PCP Family Medicine
DX: T63.461A Toxic effect of venom of wasps, accidental (unintentional), initial encounter (principal); Z77.22 Contact with and (suspected) exposure to environmental tobacco smoke (acute) (chronic); I10 Essential (primary) hypertension; E78.5 Hyperlipidemia, unspecified; E11.9 Type 2 diabetes mellitus without complications
CPT/HCPCS: 96372; 99283; J1100

== ENCOUNTER 2023-01-01 15:11 | Outpatient (CLI) | payer OTHER, SELFPAY ==
--- NOTE | 2023-01-01 15:30 | CT_ITS ---
WS: [id number] CT chest wo con [id number] HISTORY: [place] restrictive lung disease TECHNIQUE: Axial imaging performed through the thorax. Coronal and sagittal reformats are submitted. All CT scans at [facility] use at least one of these dose optimization techniques: automated exposure control; mA and/or kV adjustment per patient size (includes targeted exams where dose is mat ched to clinical indication); or iterative reconstruction. CONTRAST: Omnipaque 350; 100 mL IV. DLP: 600.87 mGy.cm COMPARISON: 12/28/2021 Lungs and central airway: Mild elevation of the RIGHT hemidiaphragm. Lung volumes are slightly decrea sed. Mild interstitial thickening bilaterally is chronic. Reidentified is the mixed density opacifica tion RIGHT upper lobe that has been previously described. The cavitary lesion has resolved since the prior exam. There is a small solid nodule now associated with the consolidation. The solid nodule oly sures 7 mm. This is an area of bronchiectasis. There are areas of mild groundglass attenuation and mo saic attenuation noted bilaterally. No additional mass or nodule. No pneumonia. No pleural effusion. Heart and pericardium: Normal size heart with no pericardial effusion. Mediastinum and lesly: No mediastinum or hilar adenopathy. Vessels: Normal size aortic and pulmonary artery. No coronary artery calcifications. Chest wall and lower neck: No soft tissue masses. Upper abdomen: Small hiatal hernia. Prior cholecystectomy. Osseous structures: No destructive process. IMPRESSION: 1. Mixed density opacification RIGHT upper lobe. The cavitary component described on 12/28/2021 has res olved. There is a small nodule measuring 7 mm now in the site of the opacification. Additional chroni c bronchiectasis associated with the opacification. Recommend 6-month noncontrast chest CT follow-up. 2. Chronic emphysema. No pneumonia. 3. Prior cholecystectomy.
== END 2023-01-01 15:12 | disposition home or self-care (01) ==
LOC: RAD 15:12
PROVIDERS: PCP Family Medicine; Visit Provider Internal Medicine Pulmonary Disease
DX: J98.4 Other disorders of lung (principal); U09.9 Post COVID-19 condition, unspecified; R91.1 Solitary pulmonary nodule; J47.9 Bronchiectasis, uncomplicated; J43.9 Emphysema, unspecified; R41.840 Attention and concentration deficit; Z90.49 Acquired absence of other specified parts of digestive tract
CPT/HCPCS: 71250

== ENCOUNTER 2023-01-30 09:48 | Outpatient (RCR) | payer OTHER, SELFPAY | END 2023-02-26 23:59 | disposition home or self-care (01) | LOC: SPT 09:48 | PROVIDERS: PCP Family Medicine; Visit Provider Family Medicine | DX: M25.512 Pain in left shoulder (principal) | CPT/HCPCS: 97110; 97161 ==

== ENCOUNTER → 2023-01-31 10:35 | Outpatient (BNVA) | payer OTHER, SELFPAY | PROVIDERS: PCP Family Medicine; Visit Provider Internal Medicine Pulmonary Disease | DX: J47.9 Bronchiectasis, uncomplicated (principal); J84.89 Other specified interstitial pulmonary diseases; R91.1 Solitary pulmonary nodule; Z77.22 Contact with and (suspected) exposure to environmental tobacco smoke (acute) (chronic); U09.9 Post COVID-19 condition, unspecified | CPT/HCPCS: 99214 ==

== ENCOUNTER 2023-02-27 06:00 | Outpatient (RCR) | payer OTHER, SELFPAY | END 2023-03-28 23:59 | disposition home or self-care (01) | LOC: SPT 06:00 | PROVIDERS: PCP Family Medicine; Visit Provider Family Medicine | DX: M25.512 Pain in left shoulder (principal) | CPT/HCPCS: 97110 ==

== ENCOUNTER 2023-03-29 06:00 | Outpatient (RCR) | payer OTHER, SELFPAY | END 2023-04-08 23:59 | disposition home or self-care (01) | LOC: SPT 06:00 | PROVIDERS: PCP Family Medicine; Visit Provider Family Medicine | DX: M25.512 Pain in left shoulder (principal) | CPT/HCPCS: 97110 ==

== ENCOUNTER → 2023-04-17 13:00 | Outpatient (BNVA) | payer OTHER, SELFPAY | PROVIDERS: PCP Family Medicine; Visit Provider Nurse Practitioner Family | DX: L82.1 Other seborrheic keratosis (principal); L73.8 Other specified follicular disorders; L57.8 Other skin changes due to chronic exposure to nonionizing radiation; L82.0 Inflamed seborrheic keratosis; D22.5 Melanocytic nevi of trunk | CPT/HCPCS: 17110; 99213 ==

== ENCOUNTER 2023-07-02 07:50 | Outpatient (CLI) | payer OTHER, SELFPAY ==
--- NOTE | 2023-07-02 08:00 | CTR_ITS ---
PROCEDURE INFORMATION: Exam: CT Chest Without Contrast; Diagnostic Exam date and time: 07/02/2023 8:10 AM Age: 53 years old Clinical indication: Condition or disease; Lung condition and disease; Pulmonary nodule, solitary; Prior surgery; Surgery date: 6+ months; Surgery type: Stents, gb; Additional info: Lung nodule f/u TECHNIQUE: Imaging protocol: Diagnostic computed tomography of the chest without contrast. Radiation optimization: All CT scans at this facility use at least one of these dose optimization techniques: automated exposure control; mA and/or kV adjustment per patient size (includes targeted exams where dose is matched to clinical indication); or iterative reconstruction. COMPARISON: 1. CT chest wo con [id number] 12/28/2021 9:[address] chest wo con [id number] 01/01/2023 3:20 PM RADIATION DOSE METRICS: Total DLP (mGy-cm): 616.53 FINDINGS: Lungs: There is mild coarse reticular opacity throughout the mid and upper lungs bilaterally, greatest in the right apex where there is high attenuation (calcified) coarse reticulonodular opacity and bronchiectasis with volume loss. There is a noncalcified pulmonary nodule in the lingula visible on series 4, image 29 measuring 4 mm, stable since 12/28/2021. Upper lung predominant opacities are similar to the findings on 12/28/2021. There are stable calcified granulomas in the lower lobes. Pleural spaces: There is no pleural effusion or pneumothorax. Heart: The heart is unremarkable. There is no pericardial effusion. Coronary arteries: There is mild coronary artery calcification. Lymph nodes: There is no mediastinal or hilar lymphadenopathy. There are small calcified left hilar lymph nodes. Vasculature: The aorta is unremarkable. There is no aneurysm. Intraperitoneal space: Visible structures in the upper abdomen are unremarkable. Bones/joints: Bones are unremarkable. Soft tissues: The extrathoracic soft tissues are unremarkable. CT/CT chest wo con [id number] IMPRESSION: 1. Focal opacity in the right upper lobe characterized by a thick reticulonodular high attenuation opacity consistent with calcifications. There is associated bronchiectasis and volume loss suggesting chronic sequelae of a remote infectious or inflammatory process. 2. Mild bilateral upper lung disease is stable since 12/28/2021. Findings are nonspecific and may represent sequelae of remote infection or inflammation, inhalational lung injury, hypersensitivity pneumonitis, and pneumoconioses. There is no emphysema. 3. Stable 4 mm noncalcified pulmonary nodule in the lingula since 12/28/2021. Calcified granulomas are seen elsewhere. Stable pulmonary nodule(s) for which no further follow-up is recommended. (Reference: Elvis) REFERENCES: Elvis Cheatham, et al. Guidelines for Management of Incidental Pulmonary Nodules Detected on CT Images: From the Fleischner Society 2017. Radiology. 2017;284(1):228-243.
== END 2023-07-02 07:51 | disposition home or self-care (01) ==
LOC: RAD 07:52
PROVIDERS: PCP Family Medicine; Visit Provider Internal Medicine Pulmonary Disease
DX: R91.8 Other nonspecific abnormal finding of lung field (principal); J98.4 Other disorders of lung; J47.9 Bronchiectasis, uncomplicated; Z95.5 Presence of coronary angioplasty implant and graft
CPT/HCPCS: 71250

== ENCOUNTER → 2023-08-28 13:11 | Outpatient (BNVA) | payer OTHER, SELFPAY | PROVIDERS: PCP Family Medicine; Visit Provider Nurse Practitioner Family | DX: L57.8 Other skin changes due to chronic exposure to nonionizing radiation (principal); L73.8 Other specified follicular disorders; L82.0 Inflamed seborrheic keratosis; D22.5 Melanocytic nevi of trunk | CPT/HCPCS: 17110; 99213 ==

== ENCOUNTER → 2023-10-03 08:44 | Outpatient (BNVA) | payer OTHER, SELFPAY | PROVIDERS: PCP Family Medicine; Visit Provider Internal Medicine Pulmonary Disease | DX: R06.00 Dyspnea, unspecified (principal); J12.89 Other viral pneumonia; R53.81 Other malaise; U09.9 Post COVID-19 condition, unspecified; T78.40XA Allergy, unspecified, initial encounter; J98.4 Other disorders of lung; R91.1 Solitary pulmonary nodule; X58.XXXA Exposure to other specified factors, initial encounter | CPT/HCPCS: 99214 ==

== ENCOUNTER → 2023-11-05 08:34 | Outpatient (BNVA) | payer OTHER, SELFPAY | PROVIDERS: PCP Family Medicine; Visit Provider Specialist | DX: G40.909 Epilepsy, unspecified, not intractable, without status epilepticus (principal); F98.8 Other specified behavioral and emotional disorders with onset usually occurring in childhood and adolescence; G43.711 Chronic migraine without aura, intractable, with status migrainosus; G50.8 Other disorders of trigeminal nerve; G56.23 Lesion of ulnar nerve, bilateral upper limbs; I69.30 Unspecified sequelae of cerebral infarction; R41.840 Attention and concentration deficit; U09.9 Post COVID-19 condition, unspecified; R03.0 Elevated blood-pressure reading, without diagnosis of hypertension | CPT/HCPCS: 99213; 99214 ==

== ENCOUNTER → 2023-12-17 13:41 | Outpatient (BNVA) | payer OTHER, SELFPAY | PROVIDERS: PCP Family Medicine; Visit Provider Specialist | DX: G56.23 Lesion of ulnar nerve, bilateral upper limbs (principal); G56.03 Carpal tunnel syndrome, bilateral upper limbs | CPT/HCPCS: 95910 ==

== ENCOUNTER → 2024-01-09 10:41 | Outpatient (BNVA) | payer OTHER, SELFPAY | PROVIDERS: PCP Family Medicine; Visit Provider Physician Assistant | DX: G56.03 Carpal tunnel syndrome, bilateral upper limbs (principal); G56.22 Lesion of ulnar nerve, left upper limb | CPT/HCPCS: 73080; 99204 ==

== ENCOUNTER → 2024-02-17 08:41 | Day surgery (SDC) | payer OTHER, SELFPAY ==
[2024-02-17] VITALS (16 sets, daily range): BP systolic 100–163; BP diastolic 61–99; PULSE 72–90; RESP 10–18; TEMP 36.2–37.1; O2SAT 90–99; BMI 34.2
[2024-02-17 09:34] LABS: Glucose Point of Care 144 mg/dL (70-110)
[2024-02-17] MEDS: sodium chloride 0.9% 1,000 ML 30 ML IV (09:34)
[2024-02-17] MEDS: acetaminophen 1,000 MG/100 ML PIGGYBACK 400 MG IV (09:35)
[2024-02-17] MEDS: scopolamine 1.5 Patch 1 PATCH TRANSDERMA (09:36)
[2024-02-17 09:48] LABS: Basophils # 0.1 10^3/uL (0.0-0.1); Basophils % 0.7 %; Eosinophils # 0.3 10^3/uL (0.0-0.8); Eosinophils % 3.4 %; Hematocrit 50.2 % (37-53); Lymphocytes # 2.5 10^3/uL (0.8-4.8); Lymphocytes % 30.8 %; Mean Corpuscular HGB Conc 33.5 g/dL (30-55); Mean Corpuscular Hemoglobin 29.6 pg (27-33); Mean Corpuscular Volume 88.5 fl (82-101); Mean Platelet Volume 10.9 fL (7.4-10.4); Monocytes # 0.8 10^3/uL (0.2-0.9); Monocytes % 9.4 %; Neutrophils # 4.54 10^3/uL (1.8-7.7); Neutrophils % 55.2 %; Nucleated Red Blood Cells % 0 %; Platelet Count 238 10^3/cmm (157-399); Red Blood Count 5.67 10^6/uL (3.85-5.65); Red Cell Distribution Width 13.9 % (12.1-15.1); White Blood Count 8.22 10^3/uL (3.29-11.43)
[2024-02-17 10:11] LABS: Blood Urea Nitrogen 24 mg/dL (6-20); Calcium 9.5 mg/dL (8.5-10.5); Carbon Dioxide 21 mmol/L (22-29); Chloride 99 mmol/L (98-107); Creatinine Clr Calc Pharmacy 114.9289; Glomerular Filtration Rate 78.2 mL/min (90-130); Glucose 150 mg/dL (65-115); Osmolality Calculated 285 mOsm/kg (285-295); Sodium 134 mmol/L (136-145)
[2024-02-17 10:12] LABS: Anion Gap 18.3 (5-19); Potassium 4.3 mmol/L (3.5-5.1)
--- NOTE | 2024-02-17 10:57 | P.HP_ITS ---
Same Day Surgery H&P Indication for Procedure/HPI DATE OF PROCEDURE: February 17, 2024 CHIEF COMPLAINT/INDICATIONFOR SURGICAL PROCEDURE: Left cubital tunnel syndrome PREOP DIAGNOSIS: Left cubital tunnel syndrome PLANNED PROCEDURE: Operation Date: 02/17/24 11:30 Proposed Procedures p Cubital Tunnel Release(Left) - Mesfin Edgar, DO s Ulnar Nerve Transposition(Left) - Mesfin Edgar, DO Medications/Allergies* Home Medications Medication Instructions Recorded Confirmed Type amlodipine 10 mg tablet 10 mg PO DAILY 10/06/19 02/14/24 History omega-3 fatty acids 1,000 mg 1,000 mg PO DAILY 10/06/19 02/14/24 History capsule (Fish Oil Concentrate) ascorbic acid (vitamin C) 500 mg 500 mg PO DAILY 03/26/20 02/14/24 History tablet (Vitamin C) folic acid 1 mg tablet 1 mg PO DAILY 10/24/20 02/14/24 History hydralazine 25 mg tablet 25 mg PO TID 10/24/20 02/14/24 History carvedilol 25 mg tablet 25 mg PO BID 02/20/21 02/14/24 History atorvastatin 20 mg tablet 80 mg PO DAILY 01/10/22 02/14/24 History lisinopril 20 mg tablet 20 mg PO DAILY 01/10/22 02/14/24 History empagliflozin 25 mg tablet 25 mg PO DAILY 07/30/22 02/14/24 History (Jardiance) semaglutide 0.25 mg or 0.5 mg (2 mg SUBCUT .1x a week 09/05/22 01/09/24 History mg/1.5 mL) subcutaneous pen injector (Ozempic) Allergies/Adverse Reactions Allergy/AdvReac Type Severity Reaction Status Date / Time aspirin Allergy ALGY-Anaphy Verified 02/17/24 08:52 laxis metformin AdvReac ADR-Diarrhe Verified 02/17/24 08:52 a NSAIDS (Non-Steroidal AdvReac ADR-Swelling Verified 02/17/24 08:52 Anti-Inflamma of the Eye Current Medications: Generic Name Dose Route Start Last Admin Trade Name Freq PRN Reason Stop Dose Admin Sodium Chloride 1,000 mls @ 30 mls/hr 02/17/24 09:00 02/17/24 09:34 Sodium Chloride 0.9% IV 02/18/24 08:59 30 mls/hr .Q24H ABRAN Administration Pertinent History/Comorbid Conditions* Medical History (Updated 01/09/24 @ 11:29 by ARLET Bella) COVID-19 Type 2 diabetes mellitus with hyperglycemia Essential (primary) hypertension Hyperlipidemia Vitamin D deficiency Spondylolysis, lumbosacral region Surgical History (Updated 10/13/21 @ 10:56 by Saud Marrero MD) History of colonoscopy (10/13/21) 2010 History of carpal tunnel release (~2013) RIGHT History of cholecystectomy (~2009) S/P left knee arthroscopy Family History (Updated 03/27/20 @ 14:47 by JOHNSON Alamo-C) Diabetes Dementia Mother Hyperlipidemia Mother Anesthesia complication Cancer Hypertension Mother Sister Social History Smoking and tobacco/nicotine status: never used tobacco/nicotine Second hand smoke exposure: Yes Alcohol intake: never Substance/Drug Use: never Lives independently: Yes Household members: none Housing: House Marital status: Single Highest education level completed: High School Graduate service: Yes Current occupational status: unemployed and disabled Current occupation: Digital Strategy Specialist Current occupational exposures/hazards: No Pets and animals: No Do you think of yourself as: Straight/Heterosexual Current gender identity: Male Pertinent Exam Findings alert, oriented x 3, operative site marked and procedure specific exam findings Examination today of the left elbow demonstrates positive Tinel's throughout the cubital tunnel as well as proximal to mid aspect of the forearm at the distal extent of the cubital tunnel. Please refer to detailed orthopedic examination on 01/09/2024: Hand exam-Negative Tinel's and negative Phalen's test. No thenar atrophy and thenar muscle weakness. Full range of motion in fingers and wrist and fingers are warm and well-perfused with normal cap refill under 2 seconds. Radial pulse 2+, intrinsic muscle weakness noted. Elbow exam-negative Tinel's test and positive Tinel's test down to mid forearm Recommendations Surgery/Procedure today Other Plans: Plan to proceed to the OR today for a left cubital tunnel release with possible ulnar nerve transposition. Given he does have significant Tinel's diffusely throughout the entirety of the cubital tunnel we talked about making a slightly larger incision to verify complete decompression of the ulnar nerve throughout the entirety of the cubital tunnel. He has he has positive signs throughout it. He understands the ins and outs procedure risk benefits complication alternatives with surgery states this is been happening since 2019 when he originally had COVID he states he has had numbness and tingling from his elbow down since. This point time he understands the ins and outs procedure risk benefits complication alternatives surgery he also understands that this can be an incomplete recovery given the severity of his disease. At this point time he elects proceed with surgical intervention at this time. All questions answered. Coding Level of Care Code Acute Code for taylor Fwrichy
--- NOTE | 2024-02-17 11:05 | P.ANESASSM_ITS ---
Pre-Anesthetic Assessment Height/Weight: Height 1.85 m Weight 117.934 kg Temp Pulse Resp BP Pulse Ox O2 Del Method 97.5 F L 77 18 163/99 94 Room Air 02/17/24 09:01 02/17/24 09:01 02/17/24 09:01 02/17/24 09:36 02/17/24 09:01 02/17/24 09:01 Preop Diagnosis: Left cubital tunnel syndrome Operation Date: 02/17/24 11:30 Proposed Procedures p Cubital Tunnel Release(Left) - Mesfin Andrey, DO s Ulnar Nerve Transposition(Left) - Mesfin Chesterfield, DO Familial anesthetic complications: None Was Beta Johnathan taken within 24 hours: N/A Was Clonidine taken within 24 hours: N/A Last intake: Intake Last Liquid Date 02/17/24 Last Liquid Time 07:30 Last Solid Date 02/16/24 Last Solid Time 21:30 Social No alcohol and No tobacco Exam alert, oriented x 3, clear to auscultation bilaterally and regular rate & rhythm Airway Mallampati: Class III Dentition: full Comments: Comments: hx tracheostomy Pulmonary Sleep Apnea Long covid, restrictive lung disease, CV/HEM Hypertension Anesthetic Plan ASA status: 3 Anesthesia: General and Regional (specify below) Risk of > 500 ml blood loss (7ml/kg in children): No Medications/Allergies Home Medications Medication Instructions Recorded Confirmed Last Taken Type amlodipine 10 mg tablet 10 mg PO DAILY 10/06/19 02/14/24 02/17/24 History omega-3 fatty acids 1,000 mg 1,000 mg PO DAILY 10/06/19 02/14/24 3 Weeks Ago History capsule (Fish Oil Concentrate) ~01/24/24 ascorbic acid (vitamin C) 500 mg 500 mg PO DAILY 03/26/20 02/14/24 02/14/24 History tablet (Vitamin C) albuterol sulfate 90 mcg/actuation 1 inh inhalation QID PRN shortness 10/24/20 02/14/24 2 Weeks Ago Rx aerosol inhaler (Ventolin HFA) of breath or wheezing #6.7 grams ~01/31/24 folic acid 1 mg tablet 1 mg PO DAILY 10/24/20 02/14/24 02/14/24 History hydralazine 25 mg tablet 25 mg PO TID 10/24/20 02/14/24 02/14/24 History carvedilol 25 mg tablet 25 mg PO BID 02/20/21 02/14/24 02/14/24 History atorvastatin 20 mg tablet 80 mg PO DAILY 01/10/22 02/14/24 02/14/24 History lisinopril 20 mg tablet 20 mg PO DAILY 01/10/22 02/14/24 02/14/24 History empagliflozin 25 mg tablet 25 mg PO DAILY 07/30/22 02/14/24 02/14/24 History (Jardiance) semaglutide 0.25 mg or 0.5 mg (2 mg SUBCUT .1x a week 09/05/22 01/09/24 02/04/24 History mg/1.5 mL) subcutaneous pen injector (Ozempic) divalproex 500 mg tablet,delayed 1,000 mg (2 x 500 mg) PO ONCE 90 11/05/23 02/14/24 02/14/24 Rx release days #180 tabs Allergies Allergy/AdvReac Type Severity Reaction Status Date / Time aspirin Allergy ALGY-Anaphy Verified 02/17/24 08:52 laxis metformin AdvReac ADR-Diarrhe Verified 02/17/24 08:52 a NSAIDS (Non-Steroidal AdvReac ADR-Swelling Verified 02/17/24 08:52 Anti-Inflamma of the Eye Current Medications Generic Name Dose Route Start Last Admin Trade Name Freq PRN Reason Stop Dose Admin Sodium Chloride 1,000 mls @ 30 mls/hr 02/17/24 09:00 02/17/24 09:34 Sodium Chloride 0.9% IV 02/18/24 08:59 30 mls/hr .Q24H ABRAN Administration PFSH Anesthesia Medical History COVID-19 Type 2 diabetes mellitus with hyperglycemia Essential (primary) hypertension Hyperlipidemia Vitamin D deficiency Spondylolysis, lumbosacral region Surgical History History of colonoscopy (10/13/21) 2010 History of carpal tunnel release (~2013) RIGHT History of cholecystectomy (~2009) S/P left knee arthroscopy Family History Mother Dementia Hypertension Hyperlipidemia Sister Hypertension Other Anesthesia complication Cancer Diabetes Social History Smoking and tobacco/nicotine status: never used tobacco/nicotine Second hand smoke exposure: Yes Alcohol intake: never Substance/Drug Use: never Lives independently: Yes Household members: none Housing: House Marital status: Single Highest education level completed: High School Graduate service: Yes Current occupational status: unemployed and disabled Current occupation: Retail Attendant Current occupational exposures/hazards: No Pets and animals: No Do you think of yourself as: Straight/Heterosexual Current gender identity: Male Data Anesthesia 02/17/24 09:42 02/17/24 09:42 Short CBC 02/17/24 Range/Units 09:42 WBC 8.22 (3.29-11.43) 10^3/uL Hgb 16.80 (11.27-16.99) g/dL Hct 50.2 (37-53) % MCV 88.5 (82-101) fl Plt Count 238 (157-399) 10^3/cmm Neut % (Auto) 55.2 % Neut # (Auto) 4.54 (1.8-7.7) 10^3/uL BMP 02/17/24 09:42 Sodium 134 L Potassium 4.3 Chloride 99 Carbon Dioxide 21 L BUN 24 H Creatinine 1.0 Glucose 150 H Calcium 9.5 Cardiac Studies: 2 Echocardiogram 02/22/21
--- NOTE | 2024-02-17 11:09 | ANES.PROC ---
Anesthesia Procedures Procedure/Date: 02/17/24 Nerve Block ^: Nerve Block 1: Main Anesthesia: general anesthesia Time Out Performed: Yes Consent: requested by attending/covering physician, from patient, from other, risks and benefits reviewed and patient agrees to proceed Nerve block location: supraclavicular (L) Anesthesia monitors applied: pulse oximetry, EKG, BP cuff and oxygen Nerve block position: semi sitting Anesthetic Used: ropivicaine 0.5% (20 ml ) and with decadron Ultrasound used to: recognize landmarks, visualize and ID brachial plexus and in supraclavicular region Nerve Stimulator Used?: No Interscalene/Femoral BLK: 4 stimuplex 21 g needle used for position and inplane approach, visualize local anesthetic spread and no vascular puncture identified Injection: neg aspiration of heme Patient Tolerated Procedure: well Complications: none
[2024-02-17] MEDS: ceFAZolin 2,000 MG in sodium chloride 0.9% (plus) 50 ML 100 MG IV (11:30)
--- NOTE | 2024-02-17 13:09 | P.BOP_ITS ---
Date of Procedure: [February 17, 2024] Surgeon: [Dr. Balderas DO] Headline Writer(s): [Ron Balderas PA-C] Procedure(s) performed: [Left cubital tunnel release with ulnar nerve transposition] Findings of the procedure(s): [Left cubital tunnel syndrome. Ulnar nerve subluxing over olecranon with ROM, so ulnar nerve was transposed. Procedure went well and as planned.] Estimated blood loss: [15 ml] Specimen(s) removed: [n/a] Post-operative diagnosis: [Left cubital tunnel syndrome]
--- NOTE | 2024-02-17 13:13 | P.PCN_ITS ---
PACU note Narrative: Patient is a 54-year-old male that underwent a left cubital tunnel release. Patient transferred to PACU in stable condition. Pain is well controlled. Dressing on hand is dry and in place. Patient's fingers are warm and well- perfused. Patient can wiggle fingers. normal cap refill under 2 seconds. Patient has normal elbow range of motion. Unable to assess sensation due to residual localized anesthetic. Exam: awake Disposition: discharged
[2024-02-17] MEDS: fentaNYL 50 mcg/mL INJ 2mL IVP ×2 (13:16→13:38)
--- NOTE | 2024-02-17 13:42 | PM.OP ---
Operative Report Date of procedure: February 17, 2024 Surgeon: Mesfin Balderas DO Carbon Furnace Operator Helper: Ron Balderas PA-C: PA was necessary for assistance in this case with hand positioning to execute the procedure, retraction and protection of neurovascular structures as well as to assist with wound closure and dressing application. Procedure: Post-op diagnosis:? Left?cubital?tunnel syndrome and subluxating ulnar nerve Post-op findings: See operative note Procedure done: Left?cubital?tunnel release(ulnar nerve decompression) Left elbow ulnar nerve transposition Surgeon: Mesfin Balderas DO Estimated blood loss: 15 cc Tourniquet Time: 40 minutes IV fluids: 1100mL Complications: None Findings: See operative report narrative Condition: stable Disposition: same day Brief History: Patient is a pleasant 54-year-old Male was seen evaluated in the outpatient setting for Left ulnar nerve neuropathy at the elbow.? Patient had EMG findings consistent with this.? ?On my examination in the office patient findings are consistent with this preoperative diagnosis. We had detailed discussion in office about continued nonoperative intervention versus operative intervention.? Patient understands the risk benefits complications alternatives to surgical and nonsurgical treatment options.? Patient understands the risks include but not limited to make it better, make it worse, infection, permanent injury to nerve, decreased function and sensation to the hand with persistent weakness.? Given these risks patient understands and agrees to proceed with current plan.? Patient elects to proceed with a Left?cubital?tunnel release and possible ulnar nerve transposition. all questions answered. Procedure: Patient was seen and evaluated in the preoperative holding area.? The consent that was filled out in office was reviewed with patient and confirmed to be appropriate for Left ulnar nerve?cubital?tunnel release and possible ulnar nerve transposition.? Correct extremity was then marked.? Patient was seen evaluated by the preoperative team as well as anesthesia department.? Once cleared for surgery patient was then taken to the operative suite and transported onto the operative table all bony prominences were well-padded and patient was secured to the table.? Left upper extremity was placed on an armboard.? Patient then underwent anesthesia per the anesthesia department. The Left upper extremity tourniquet was applied. Patient's Left upper extremity was then prepped and draped in standard orthopedic fashion.? i This point a final timeout was performed. Patient received appropriate preop antibiotics. Esmarch tourniquet was used to exsanguinate the operative extremity and was insufflated to 250 mmHg.? Standard curvilinear incision was made centering over the ulnar nerve between the medial epicondyle and olecranon process.? Sharp scalpel excision through skin and subcutaneous tissue was performed.? Once I encountered subcutaneous tissue I then utilized dissection scissors to spread in the path of the [facility] and care was made to protect any nerve branches throughout this case.? I then utilized a scalpel to complete my dissection directly on over to the flexor pronator mass and elevated this fat tissue directly off of the fascia.? I started my dissection of the ulnar nerve the nerve proximally.? Once identified I then utilized Littler dissection scissors and decompress the nerve completely and proximally and utilized blunt dissection to make sure there was no entrapment proximally..? Once decompressed proximally I then traced the nerve distal through Butt's ligament and as it entered the FCU fascia aponeurosis and completed by decompression and ulnar nerve neurolysis distally.? The nerve was completely released in situ no areas of entrapment I was able to place my finger distally and proximally with no areas entrapment along the nerve.? At this point in time by in situ release was completed I then subsequently took the elbow through range of motion and subluxation was noted over the medial epicondyle and plan for ulnar nerve transposition was made.? ?I thoroughly irrigated the nerve throughout the case to prevent it from drying out. Of note the ulnar nerve had significant irritation and inflammation.? Next while protecting the nerve as well as care to not injure any venous structures I then excised the intermuscular septum proximally with bipolar electrocautery.? This allowed for there to be no entrapment proximally with my transposition.? Next I then performed my standard Z- flap into the fascia.? This created a large thick fascial band that would be sutured to secure the ulnar nerve when its been transposed.? Once the incision was made just through the fascia I then mobilized just the fascia and freed the muscle belly off of this.? I then sequentially excised the fascial bands throughout the flexor pronator mass to prevent any type of bandage strip structure irritating the transposition.? At this point I had only soft tissue and muscle belly with which the ulnar nerve could rest.? I had to do a small excision of the muscle belly distally to create a nice trough for the nerve to lie.? At this point I then mobilized the nerve and this was transposed into the flexor pronator insertion under the fasica flaps.? There was no evidence of kinking/tethering of the nerve.? this was significantly redundant and lax with no signs of tension or entrapment.? I then utilized a 3-0 Ethibond suture and approximated the fascia flaps that was created and secured with horizontal interrupted mattress stitches.? I was able to place 2 fingers under the repair with no evidence of entrapment and the elbow was taken through range of motion and no areas of entrapment or kinking were noted on the nerve and the nerve was redundant relaxed in all ranges of motion.? This completed my ulnar nerve decompression of the?cubital?tunnel as well as ulnar nerve transposition.? Wound bed was then thoroughly irrigated.? Tourniquet was deflated.? Maintained exact hemostasis with bipolar electrocautery.? I did place a rachel drain to prevent hematoma formation. As result the skin was reapproximated with interrupted Vicryl subcutaneous suture 3-0.? I next utilized a running horizontal mattress stitch with 3-0 nylon.? Extremity was then cleaned and the incision was then covered with Xeroform 4 x 4's ABD Curlex and soft roll and a posterior long-arm splint was then applied with an Parker wrap.? Patient was then awakened from anesthesia and taken to PACU in stable condition. Disposition: Patient taken to PACU in stable condition.? Patient given appropriate discharge instructions as well as pain medication.? We will get Patient in with OT hand therapy for splint takedown dressing change and drain pull in the next couple days. Patient will see me in office in 2 weeks.? pt understands? if they has any questions they can contact the office.
[2024-02-17] MEDS: HYDROcodone-acetaminophen 5-325 mg Tablet 1 TAB PO (14:13)
--- NOTE | 2024-02-17 14:45 | ANE.PACU2 ---
Inpatient post-anesthesia follow up: Airway intact: Yes Vital signs: Temperature 98.7 F Pulse Rate 81 Respiratory Rate 16 Blood Pressure 118/70 Pulse Oximetry 93 Oxygen Delivery Me thod Room Air Oxygen Flow Rate 2 Fraction of Inspir ed Oxygen Hydration adequate: Yes Nausea and vomiting: No Pain level: 1 Mental status: Baseline
== END | disposition home or self-care (01) ==
PROVIDERS: Anesthesiology; PCP Family Medicine; Visit Provider Student in an Organized Health Care Education/Training Program
PROC: (CPT 64718; principal; 2024-02-17 11:30)
PROC: (CPT 64718; 2024-02-17 11:30)
DX: G56.22 Lesion of ulnar nerve, left upper limb (principal); G47.30 Sleep apnea, unspecified; I10 Essential (primary) hypertension; Z86.16 Personal history of COVID-19; E78.5 Hyperlipidemia, unspecified; Z79.84 Long term (current) use of oral hypoglycemic drugs
CPT/HCPCS: 64718; 36416; 80048; 82962; 85025; J0131; J0690; J1100; J2250; J2704; J2795; J3010; J7030

== ENCOUNTER 2024-02-19 14:40 | Outpatient (RCR) | payer OTHER, SELFPAY | END 2024-02-27 23:59 | disposition home or self-care (01) | LOC: SOT 14:40 | PROVIDERS: Visit Provider Student in an Organized Health Care Education/Training Program | DX: G56.22 Lesion of ulnar nerve, left upper limb (principal) | CPT/HCPCS: 97165; 97530; 97760; L3763 ==

== ENCOUNTER → 2024-02-20 15:06 | Outpatient (BNVA) | payer OTHER, SELFPAY | PROVIDERS: Visit Provider Specialist | DX: G40.909 Epilepsy, unspecified, not intractable, without status epilepticus (principal); F98.8 Other specified behavioral and emotional disorders with onset usually occurring in childhood and adolescence; G56.23 Lesion of ulnar nerve, bilateral upper limbs; I69.30 Unspecified sequelae of cerebral infarction; R41.840 Attention and concentration deficit; U09.9 Post COVID-19 condition, unspecified; R03.0 Elevated blood-pressure reading, without diagnosis of hypertension | CPT/HCPCS: 99214 ==

== ENCOUNTER 2024-02-28 06:00 | Outpatient (RCR) | payer OTHER, SELFPAY | END 2024-03-28 23:59 | disposition home or self-care (01) | LOC: SOT 06:00 | PROVIDERS: Visit Provider Student in an Organized Health Care Education/Training Program | DX: G56.22 Lesion of ulnar nerve, left upper limb (principal); Z98.890 Other specified postprocedural states | CPT/HCPCS: 97110; 97530 ==

== ENCOUNTER → 2024-03-03 13:17 | Outpatient (BNVA) | payer OTHER, SELFPAY | PROVIDERS: Visit Provider Physician Assistant | DX: Z98.890 Other specified postprocedural states (principal) | CPT/HCPCS: 99024 ==

== ENCOUNTER → 2024-03-31 13:40 | Outpatient (BNVA) | payer OTHER, SELFPAY | PROVIDERS: Visit Provider Physician Assistant | DX: Z98.890 Other specified postprocedural states (principal) | CPT/HCPCS: 99024 ==

== ENCOUNTER 2024-04-06 10:46 | Outpatient (RCR) | payer OTHER, SELFPAY | END 2024-04-28 23:59 | disposition home or self-care (01) | LOC: SOT 10:46 | PROVIDERS: Visit Provider Student in an Organized Health Care Education/Training Program | DX: G56.22 Lesion of ulnar nerve, left upper limb (principal); Z98.890 Other specified postprocedural states | CPT/HCPCS: 97110 ==

== ENCOUNTER → 2024-04-16 11:49 | Outpatient (BNVA) | payer OTHER, SELFPAY | PROVIDERS: Referring Provider Internal Medicine Nephrology; Visit Provider Specialist | DX: R56.9 Unspecified convulsions (principal); R41.840 Attention and concentration deficit; U09.9 Post COVID-19 condition, unspecified; Z51.81 Encounter for therapeutic drug level monitoring; Z79.899 Other long term (current) drug therapy | CPT/HCPCS: 95812; 95816 ==

== ENCOUNTER 2024-05-15 09:41 | Outpatient (CLI) | payer OTHER, SELFPAY ==
--- NOTE | 2024-05-15 09:47 | US_ITS ---
WS: [id number] RIGHT UPPER QUADRANT ULTRASOUND HISTORY: RUQ PAIN COMPARISON: Chest CT 07/02/2023, 01/01/2023, 07/19/2022, 11/14/2020 Liver: 16.7 cm in length. Coarse echotexture throughout the liver. No mass identified. The entire anupam er is poorly visualized due to body habitus. No intrahepatic duct dilatation. Portal Vein: Not imaged. Gallbladder: Prior cholecystectomy. CBD: 0.5 cm Pancreas: Mildly echogenic pancreas. The head and tail are not well visualized. Right kidney: 11.3 cm in length. Normal size kidney. No hydronephrosis. Tiny cortical cyst lower pole with a maximum diameter of 0.7 cm. Aorta and IVC: Poorly visualized. There is a well-circumscribed hypoechoic mass in the central abdomen just superior to the pancreas. T his is a hypoechoic mass measuring 2.1 x 1.8 x 2.2 cm. No significant increased vascularity identifie d. After reviewing several prior CT chest evaluations this mass has been present on prior exams but m ore difficult to visualize due to its position adjacent to the stomach. This mass is inseparable from the body of the stomach and is exophytic from the stomach. Mass has slowly increased in size since . In retrospect there is a very tiny mass of approximately 7 mm. No ascites. US/US abdomen limited [id number] IMPRESSION: 1. Status post cholecystectomy. 2. Hepatic steatosis. 3. No common bile duct dilatation. 4. Well-circumscribed hypoechoic mass in the central abdomen. Upon reviewing p rior chest CTs which included the upper abdomen, this mass was present on the s tudy of 07/02/2023 but better visualized today due to slight increase in size. Ma ss measures 2.1 x 1.8 x 2.2 cm. Due to its exophytic appearance from the stomac h differential includes GIST tumor and carcinoid tumor. Consider further imagi ng evaluation. This may include CT abdomen and pelvis with IV and oral contrast . PET/CT imaging would demonstrate high avidity if this is a GIST tumor.
== END 2024-05-15 09:42 | disposition home or self-care (01) ==
LOC: RAD 09:42
PROVIDERS: PCP Family Medicine; Visit Provider Nurse Practitioner Family
DX: R10.11 Right upper quadrant pain (principal); Z90.49 Acquired absence of other specified parts of digestive tract; K76.0 Fatty (change of) liver, not elsewhere classified; R19.00 Intra-abdominal and pelvic swelling, mass and lump, unspecified site; R93.2 Abnormal findings on diagnostic imaging of liver and biliary tract; R93.89 Abnormal findings on diagnostic imaging of other specified body structures
CPT/HCPCS: 76705

== ENCOUNTER 2024-07-10 09:43 | Outpatient (CLI) | payer OTHER, SELFPAY ==
--- NOTE | 2024-07-10 09:52 | PETR_ITS ---
PROCEDURE INFORMATION: Exam: PET/CT Skull Base to Mid-thigh Exam date and time: 07/10/2024 10:42 AM Age: 54 years old Clinical indication: Abnormal findings; Ultrasound 05/15/24; Additional info: Abdominal mass LABS AND CLINICAL REPORTS: Glucose: 172 mg/dl Treatment strategy for malignancy (PET staging): Initial Staging (PI) TECHNIQUE: Imaging protocol: Following at least four-hour fasting and following the injection of radiopharmaceutical, low dose CT images were obtained. Then, PET images were obtained. Attenuation corrected images were constructed using the CT scan. Fused images of PET and CT were reviewed. The standardized uptake values (SUV) reported below are maximum values within a region of interest, expressed in gm/ml. Exam includes orbital meatal line to mid-thigh. SUV normalization method: BodyWeight Radiopharmaceutical: 11.5 mCi F-18 FDG (Fluorodeoxyglucose), IV. Time of imaging post radiopharmaceutical administration: 46 minutes Injection site: left ac COMPARISON: 1. CT chest con [id number] 07/02/2023 8:[address] dated 07/02/2023. 3. Chest CT dated 12/28/2021. FINDINGS: Brain: Visualized brain has normal physiologic uptake. Pharynx: No abnormal uptake. Larynx: No abnormal uptake. Lungs, pleura and trachea: Chronic postinflammatory scarring, calcifications and bronchiectasis/bronchiolectasis in the anterior right upper lobe. Scattered areas of mildly increased FDG uptake corresponding to areas of calcification are likely inflammatory. Heart: Normal physiologic uptake. Mediastinal space: No abnormal uptake. Liver: No abnormal uptake. Subcentimeter simple cyst in the right hepatic lobe. Gallbladder and biliary ducts: No abnormal uptake. Status post cholecystectomy. Pancreas: No abnormal uptake. Spleen: No abnormal uptake. Adrenal glands: No abnormal uptake. Kidneys and ureters: Normal physiologic uptake. Congenitally malrotated right kidney. Stomach and bowel: Non FDG avid exophytic soft tissue nodule arising from the inferior aspect of the gastric body measuring 1.9 x 2.1 x 1.8 cm. This structure is mildly increased in size since the prior study, previously measuring 1.8 x 1.4 cm and is significantly increased in size since 2021, where it measured 1.5 x 1.2 cm. Colonic diverticulosis without evidence of diverticulitis. Vasculature: No abnormal uptake. Lymph nodes: No abnormal uptake. No lymphadenopathy in the head, neck, chest, abdomen, pelvis, and extremities. Skeleton: No abnormal uptake in the visualized axial and appendicular skeleton. Soft tissues: No abnormal uptake in the visualized head, neck, chest, abdomen, pelvis, and extremities. PET/PET skull to thigh INIT [id number] IMPRESSION: Non FDG avid exophytic soft tissue 2.1 cm mass arising from the inferior aspect of the gastric body, mildly increased in size since 2023 and significantly increased in size since 2021. Although gastrointestinal stromal tumor (GIST) remains a consideration, non FDG avidity in this type of neoplasm is rare (less than 10%). Additional neoplasm should be considered, such as neuroendocrine tumor, among other considerations. Tissue correlation is advised.
== END 2024-07-10 09:44 | disposition home or self-care (01) ==
PROVIDERS: PCP Family Medicine; Visit Provider Family Medicine
DX: R19.09 Other intra-abdominal and pelvic swelling, mass and lump (principal); R93.89 Abnormal findings on diagnostic imaging of other specified body structures; J98.4 Other disorders of lung; J47.9 Bronchiectasis, uncomplicated; R91.8 Other nonspecific abnormal finding of lung field; K76.89 Other specified diseases of liver; Z90.49 Acquired absence of other specified parts of digestive tract; R93.421 Abnormal radiologic findings on diagnostic imaging of right kidney; K57.30 Diverticulosis of large intestine without perforation or abscess without bleeding
CPT/HCPCS: 78815; A9552

== ENCOUNTER → 2024-08-31 08:16 | Outpatient (BNVA) | payer OTHER, SELFPAY | PROVIDERS: PCP Family Medicine; Visit Provider Nurse Practitioner Family | DX: L81.4 Other melanin hyperpigmentation (principal); L57.8 Other skin changes due to chronic exposure to nonionizing radiation; D22.5 Melanocytic nevi of trunk; L82.1 Other seborrheic keratosis; L82.0 Inflamed seborrheic keratosis; L53.8 Other specified erythematous conditions; R20.8 Other disturbances of skin sensation; L29.89 Other pruritus; Z78.9 Other specified health status; D48.5 Neoplasm of uncertain behavior of skin; L57.0 Actinic keratosis | CPT/HCPCS: 17000; 17110; 69100; 99213 ==

== ENCOUNTER → 2024-11-04 07:49 | Outpatient (BNVA) | payer OTHER, SELFPAY | PROVIDERS: PCP Family Medicine; Visit Provider Specialist | DX: G40.909 Epilepsy, unspecified, not intractable, without status epilepticus (principal); F98.8 Other specified behavioral and emotional disorders with onset usually occurring in childhood and adolescence; G43.711 Chronic migraine without aura, intractable, with status migrainosus; G50.8 Other disorders of trigeminal nerve; G56.23 Lesion of ulnar nerve, bilateral upper limbs; I69.30 Unspecified sequelae of cerebral infarction; R41.840 Attention and concentration deficit; U09.9 Post COVID-19 condition, unspecified; R03.0 Elevated blood-pressure reading, without diagnosis of hypertension; R41.3 Other amnesia | CPT/HCPCS: 96116; 99213 ==

== ENCOUNTER → 2024-11-24 09:17 | Outpatient (BNVA) | payer OTHER, SELFPAY | PROVIDERS: PCP Family Medicine; Referring Provider Specialist; Visit Provider Specialist | DX: Z98.890 Other specified postprocedural states (principal); G56.22 Lesion of ulnar nerve, left upper limb; G56.03 Carpal tunnel syndrome, bilateral upper limbs | CPT/HCPCS: 95911 ==

== ENCOUNTER → 2025-02-04 10:29 | Outpatient (BNVA) | payer OTHER, SELFPAY | PROVIDERS: PCP Family Medicine; Visit Provider Internal Medicine | DX: J47.9 Bronchiectasis, uncomplicated (principal); R91.1 Solitary pulmonary nodule; Z71.6 Tobacco abuse counseling; F17.210 Nicotine dependence, cigarettes, uncomplicated; Z87.01 Personal history of pneumonia (recurrent); J44.9 Chronic obstructive pulmonary disease, unspecified | CPT/HCPCS: 99204; 99214; 99406; Q3014 ==

== ENCOUNTER → 2025-03-08 13:16 | Outpatient (BNVA) | payer OTHER, SELFPAY | PROVIDERS: PCP Family Medicine; Visit Provider Nurse Practitioner Family | DX: L57.8 Other skin changes due to chronic exposure to nonionizing radiation (principal); L81.4 Other melanin hyperpigmentation; L82.1 Other seborrheic keratosis; D18.01 Hemangioma of skin and subcutaneous tissue; L72.0 Epidermal cyst | CPT/HCPCS: 10060; 99213 ==

== ENCOUNTER → 2025-04-05 13:34 | Outpatient (BNVA) | payer OTHER, SELFPAY | PROVIDERS: PCP Family Medicine; Visit Provider Internal Medicine | DX: J98.4 Other disorders of lung (principal); R91.1 Solitary pulmonary nodule; U09.9 Post COVID-19 condition, unspecified; J47.9 Bronchiectasis, uncomplicated; R91.8 Other nonspecific abnormal finding of lung field; C49.A2 Gastrointestinal stromal tumor of stomach; Z99.81 Dependence on supplemental oxygen; J44.9 Chronic obstructive pulmonary disease, unspecified | CPT/HCPCS: 99214; Q3014 ==